=== PATIENT | male | born 1950 | race Caucasian/White ===

== ENCOUNTER 2018-04-15 21:23 | Inpatient (IN) | payer OTHER ==
[~2018-04-15] VITALS: Ht 182.9 cm; Wt 103.9 kg
[2018-04-15 21:23] VITALS: BP 137/53
--- NOTE | 2018-04-15 21:23 | NUR ---
Patient BIBA BLS, transferred to bed 4. RN evaulating patient at bedside.
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
[2018-04-15] MEDS ORDERED: NACL 0.9% 1,000 ML IV SCH ×2 (21:35→23:29)
--- NOTE | 2018-04-15 22:00 | NUR ---
DR. AMARO WANTING TO SPEAK WITH NEXT OF KIN. CONTACTED [facility]. TRANSFERRED TO DR. AMARO.
--- NOTE | 2018-04-15 22:05 | NUR ---
Patient's nephew called and stated he was on his way here to hospital. Nephew lives in [place].
[2018-04-15 22:22] LABS: BASOPHILS % (AUTO) 0.1 % (0.0-2.0); EOSINOPHILS % (AUTO) 0.7 % (0.0-4.0); HEMATOCRIT 27.4 % (36-52); HEMOGLOBIN 8.7 g/dL (12.0-18.0); LYMPHOCYTES # (AUTO) 0.8 K/uL (2.0-11.5); MEAN CORPUSCULAR HEMOGLOBIN 25 pg (27-31); MEAN CORPUSCULAR HGB CONC 32 g/dL (33-37); MONOCYTES # (AUTO) 0.5 K/uL (0.8-1.0); MONOCYTES % (AUTO) 11.5 % (1.7-9.3); NEUTROPHILS # (AUTO) 3.1 K/uL (1.8-7.7); NEUTROPHILS % (AUTO) 68.7 % (42.2-75.2); PLATELET COUNT (AUTO) 109 K/uL (140-450); RED BLOOD CELL COUNT(AUTO) 3.42 MIL/uL (4.20-6.10); RED CELL DISTRIBUTION WIDTH 18.9 % (11.6-13.7); WHITE BLOOD COUNT (AUTO) 4.4 K/uL (4.8-10.8)
--- NOTE | 2018-04-15 22:30 | NUR ---
PT HAS SINGLE LUMEN PICC ON RT ARM. PICC LINE DOES NOT FLUSH OR DRAW. UNABLE TO INFUSE FLUIDS. DR AMARO MADE AWARE
[2018-04-15 22:35] LABS: ALBUMIN 2.4 g/dL (3.4-5.0); ANION GAP 19.7 (8-16); CARBON DIOXIDE 17.9 mmol/L (21-32); TOTAL BILIRUBIN 0.5 mg/dL (0.0-1.0)
[2018-04-15 22:55] LABS: POTASSIUM 6.6 mmol/L (3.5-5.1)
[2018-04-15 22:56] LABS: CREATININE 5.1 mg/dL (0.7-1.3)
[2018-04-15] MEDS ORDERED: NACL 0.9% 1,000 ML IV ONE (23:00)
[2018-04-15] MEDS ORDERED: SODIUM POLYSTYRENE 15 GM/60 ML UDBTL PO ONE (23:00)
[2018-04-15] MEDS ORDERED: ALBUTEROL 0.083% 2.5 MG/3 ML NEBU INH ONE (23:00)
[2018-04-15] MEDS ORDERED: SODIUM POLYSTYRENE 15 GM/60 ML UDBTL PR ONE (23:00)
[2018-04-15] MEDS ORDERED: DEXTROSE 50% 50 ML SYR IVP ONE (23:00)
[2018-04-15] MEDS ORDERED: INSULIN REGULAR, HUMAN 100 UNIT/ML VIAL IVP ONE (23:00)
[2018-04-15] MEDS ORDERED: PIPERACILLIN/TAZOBACTAM 3.375 GM in DEXTROSE 5% 50 ML IV ONE (23:15)
[2018-04-15] MEDS ORDERED: VANCOMYCIN 1,000 MG in DEXTROSE 5% 250 ML IV ONE (23:15)
[2018-04-15] MEDS ORDERED: ONDANSETRON 4 MG/2 ML VIAL IM/IVP PRN (23:30)
[2018-04-15] MEDS ORDERED: DOCUSATE SODIUM 100 MG GELCAP PO PRN (23:30)
[2018-04-15] MEDS ORDERED: VANCOMYCIN 1,000 MG VIAL ONE (23:32)
[2018-04-15] MEDS ORDERED: PIPERACILLIN/TAZOBACTAM 3.375 GM VIAL IV ONE (23:32)
[2018-04-15 23:35] LABS: PROTHROMBIN TIME 13.8 secs (10.8-13.4)
[2018-04-15] MEDS ORDERED: PANT40EC PO (23:37)
[2018-04-15] MEDS ORDERED: CLOP300T1 PO (23:37)
[2018-04-15] MEDS ORDERED: ASPI81CT89 PO (23:37)
[2018-04-15] MEDS ORDERED: ROC2I (23:37)
[2018-04-15] MEDS ORDERED: METH500T14 PO (23:37)
[2018-04-15] MEDS ORDERED: METO50TE2 PO (23:37)
[2018-04-15] MEDS ORDERED: SIMV10TA1 PO (23:37)
[2018-04-15] MEDS ORDERED: TAMS0.4C96 PO (23:37)
[2018-04-15] MEDS ORDERED: AMLO10TA PO (23:37)
[2018-04-16 00:14] LABS: FREE T4 (FREE THYROXINE) 1.14 ng/dL (0.76-1.46); MAGNESIUM 2.4 mg/dL (1.8-2.4); PHOSPHORUS 5.1 mg/dL (2.5-4.9); THYROID STIMULATING HORMONE 3.5 uIU/mL (0.34-3.74)
[2018-04-16 00:30] VITALS: BP 124/59
--- NOTE | 2018-04-16 00:30 | NUR ---
ADMITTED A67M FROM ER. CAME BY JESSICA .PT WITH ALOC. ON TELE MONITOR -SR. BEDREST. NO RESPIRATORY DISTRESS NOR PAIN NOTED. WITH SKIN INTACT. BUT HAS BRUISED ON THE RT ELBOW AND ARM. WITH IVF INFUSING ,BUT IV ACCESS LEAKING. FREQUENT ROUNDS NEEDED. CALL LIGHT PLACED WITHIN EASY REACH. STILL TRYING TO VOID. WILL FOLLOW UP ADMIT ORDERS.
--- NOTE | 2018-04-16 00:34 | NUR ---
Patient will be admitted to care of LYNN. Admited to TELEMETRY]. Will go to room 106A. Belongings list completed. Report to CRAIG PENA.
--- NOTE | 2018-04-16 00:35 | NUR ---
TRANSFFERED PT TO TELEMETRY. GAVE REPORT TO CRAIG PENA. PT VITALS WERE STABLE UPON TRANSFER. WENT TO ROOM 106A
--- NOTE | 2018-04-16 01:00 | NUR ---
PT HAS PICC LINE RT UPPER ARM ONE LUMEN. TRIED TO FLUSH WITH NS 10 ML BUT HAS SOME RESISTANCE.
--- NOTE | 2018-04-16 01:45 | NUR ---
DR. FOSS SAID TO CHECKED BS . RESULT 66. SHE SAID SHE WILL CHANGE THE IVF.
[2018-04-16] MEDS ORDERED: POTASSIUM CHL 20 MEQ/D5-1/2NS 1,000 ML IV SCH (01:50)
[2018-04-16] MEDS ORDERED: DEXTROSE 25% 10 ML SYR IVP ONE (01:50)
--- NOTE | 2018-04-16 01:55 | NUR ---
CONTINUATION OF ABOVE NOTES. DR SHEEHAN ALSO UNABLE TO ADVANCE AND EVEN PULL OUT THE CATHETER . HE SAID MIGHT NEED XRAY.
--- NOTE | 2018-04-16 01:55 | NUR ---
THUY DOSS CHECKED THE STRAIGHT CATH THAT ER STARTED AND STILL WITH PT FOR SHE SAID UNABLE TO ADVANCE IT.
[2018-04-16] MEDS: DEXT 5% / NACL 0.45% 1,000 ML IV SCH ×2 (02:15→15:36)
--- NOTE | 2018-04-16 02:35 | NUR ---
GAVE APPLE JUICE EARLIER THEN RECHECKED BS AFTER RESULT 103. DR FOSS MADE AWARE. SHE SAID SHE WILL DC THE D50 .
--- NOTE | 2018-04-16 03:00 | NUR ---
PT HAD A LARGE LIQUID BROWN STOOL. CLEANED AND KEPT DRY.
[2018-04-16 04:01] VITALS: BP 136/53
[2018-04-16] MEDS ORDERED: INSULIN LISPRO SLIDING SCALE 100 UNITS/ML VIAL SUBQ PRN ×2 (04:25→06:50)
--- NOTE | 2018-04-16 04:47 | NUR ---
PT FOR US ABDOMEN(KUB) FOR THIS AM. FOLLOWED UP WITH RADIOLOGY. TO BE DONE @ 0630 THIS AM. TALKED TO DR. FOSS AND MADE HER AWARE. SHE SAID IT IS OK. JUST LEAVE THE STRAITH CATHETER IN . BLADDER NOT DISTENDED.
[2018-04-16] MEDS: BLOOD GLUCOSE MONITORING 1 DEV DEV FS SCH ×4 (05:31→23:24)
--- NOTE | 2018-04-16 05:31 | NUR ---
BLOOD SUGAR THIS AM 109. PT ON IVF INFUSING.
[2018-04-16] MEDS ORDERED: PIPERACILLIN/TAZOBACTAM 2.25 GM VIAL IV ONE (05:36)
[2018-04-16] MEDS: PIPER/TAZO 2.25GM/D5W PREMIX 50 ML IV SCH ×4 (05:39→23:08)
--- NOTE | 2018-04-16 06:00 | NUR ---
PT NEED SCD MACHINE/ REQUESTED FROM RN GERMAN PROFESSOR.
--- NOTE | 2018-04-16 07:10 | NUR ---
KUB DONE AT BEDSIDE. ENDORSED PT IN STABLE CONDITION TO AM NURSE FOR CONTINUITY OF CARE.
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
[2018-04-16 07:16] LABS: BASOPHILS % (AUTO) 0.1 % (0.0-2.0); EOSINOPHILS % (AUTO) 1.2 % (0.0-4.0); HEMATOCRIT 26.8 % (36-52); HEMOGLOBIN 8.4 g/dL (12.0-18.0); LYMPHOCYTES # (AUTO) 0.9 K/uL (2.0-11.5); LYMPHOCYTES % (AUTO) 22.4 % (20.5-51.1); MEAN CORPUSCULAR HEMOGLOBIN 25 pg (27-31); MEAN CORPUSCULAR HGB CONC 32 g/dL (33-37); MEAN CORPUSCULAR VOLUME 79.8 fL (80-94); MONOCYTES # (AUTO) 0.5 K/uL (0.8-1.0); MONOCYTES % (AUTO) 12.8 % (1.7-9.3); NEUTROPHILS # (AUTO) 2.5 K/uL (1.8-7.7); NEUTROPHILS % (AUTO) 63.5 % (42.2-75.2); PLATELET COUNT (AUTO) 105 K/uL (140-450); RED BLOOD CELL COUNT(AUTO) 3.35 MIL/uL (4.20-6.10); RED CELL DISTRIBUTION WIDTH 18.9 % (11.6-13.7)
[2018-04-16 07:38] LABS: ANION GAP 20.1 (8-16); CARBON DIOXIDE 16.4 mmol/L (21-32); POTASSIUM 5.5 mmol/L (3.5-5.1)
[2018-04-16 07:44] LABS: CHOL/HDL RATIO 1.8 (1-4.5)
[2018-04-16 08:00] VITALS: BP 136/62
--- NOTE | 2018-04-16 08:00 | NUR ---
V/S WITHIN NORMAL LIMITS. NO COMPLAINTS AT THIS TIME. CRITICAL LAB RESULTS: BUN/CREAT 71/5.0 AND K 5.5. NOT NOTIFIED D/T ALL RESULTS DOWNTRENDING. WILL CONTINUE TO MONITOR PT.
--- NOTE | 2018-04-16 08:41 | NUR ---
PATIENT HAS BEEN SCREENED AND CATEGORIZED MODERATE NUTRITION RISK. PATIENT WILL BE SEEN WITHIN 3-5 DAYS OF ADMISSION. 04/18/18 04/20/[address]
[2018-04-16] MEDS: LACTOBACILLUS RHAMNOSUS GG 1 EACH CAP PO SCH (09:09)
[2018-04-16] MEDS: CALCIUM ACETATE 667 MG TAB PO SCH (09:09)
--- NOTE | 2018-04-16 09:15 | NUR ---
ADMINISTERED MORNING MEDS. PT TOLERATED WELL. FAMILY HERE FOR VISIT, AND NEPHEW. DR ENCISO HERE TO ASSESS PT. PER MD, PT'S STRAIGHT CATH FELL OUT. SENT SAMPLE OF URINE TO THE LAB. PT IS SOAKING WET. REQUESTED TO USE A BED DAMON FOR BM. REGIONAL MEDICAL DIRECTOR AND STUDENT THERE FOR BED BATH AND TO CLEAN PT UP. WILL CONTINUE TO MONITOR PT.
[2018-04-16 10:43] LABS: BARBITURATE, URINE NEG. ng/ml (NEG <=200); BENZODIAZEPINE, URINE NEG. ng/mL (NEG <=200); CANNABINOID, URINE NEG. ng/mL (NEG <=50); COCAINE, URINE NEG. ng/mL (NEG <=300); OPIATE, URINE POS. ng/mL (NEG <=2000); PHENCYCLIDINE SCREEN,URINE NEG. ng/mL (NEG <=25)
[2018-04-16 10:57] LABS: APPEARANCE,URINE HAZY (CLEAR); BILIRUBIN,URINE NEGATIVE (NEGATIVE); BLOOD, URINE 1+ (NEGATIVE); COLOR,URINE YELLOW (YELLOW); LEUKOCYTE ESTERASE ,URINE NEGATIVE (NEGATIVE); NITRITE, URINE NEGATIVE (NEGATIVE); PH,URINE 5.5 (5.0-9.0); UGLUCOSE NEGATIVE (NEGATIVE)
[2018-04-16 11:08] LABS: RBC,URINE 0-5 (RARE) /HPF (0-5); WBC,URINE 0-5 (RARE) /HPF (0-5)
[2018-04-16 11:10] LABS: YEAST,URINE Moderate /HPF (None Seen)
--- NOTE | 2018-04-16 11:15 | NUR ---
US TECH IS HERE FOR PROCEDURE. BLADDER SCAN ALSO DONE. 320ML RESIDUAL. WILL NOTIFY MD. WILL CONTINUE TO MONITOR PT.
[2018-04-16 12:00] VITALS: BP 138/62
--- NOTE | 2018-04-16 12:13 | NUR ---
PT SLEEPING SOUNDLY. NO SIGNS OF DISTRESS. WILL CONTINUE TO MONITOR PT.
--- NOTE | 2018-04-16 13:42 | NUR ---
DR ENCISO, UROLOGIST CAME AND SAW. INSERTED CAMERON CATH. ALREADY 700ML OF LIGHT JENIFER URINE IN BAG. WILL NOTIFY HIM OF AMOUNT AFTER 30MIN.
--- NOTE | 2018-04-16 14:27 | NUR ---
CM NOTE PER MANAGER CRITICAL CARE CHRISTEN, SEND REVIEWS TO BOTH [facility] AND [facility] FAX# [phone] ISIAH PH# [phone] TAKER OFF HEMP FIBER RAQUEL PH# [phone] INITIAL REVIEW FAXED TO [facility] [phone] AKILAH PH# [phone] AND TO [facility] FAX# [phone] ISIAH PH# [phone] TAKER OFF HEMP FIBER RAQUEL PH# [phone]
[2018-04-16] MEDS ORDERED: SODIUM POLYSTYRENE 15 GM/60 ML UDBTL PO SCH (15:01)
[2018-04-16 16:00] VITALS: BP 132/66
--- NOTE | 2018-04-16 16:17 | NUR ---
ATTEMPTED TO GIVE KAYEXALATE TO PT. PT NOT AWAKE ENOUGH TO DRINK AND WHEN AWAKE PT REFUSES. SPOKE TO DR. ENCISO RESIDENT. MD CAME AND TRIED TO GIVE TO PT. UNSUCCESSFUL. WILL WAIT UNTIL NEPHEW COMES.
--- NOTE | 2018-04-16 18:37 | NUR ---
NEPHEW AT BEDSIDE. PT HAD MOST OF THE KAYEXALATE. PT IS SOILED. NEED TO BE CHANGED. NOTIFIED REPLENISHMENT SPECIALIST TO ASSIST CHANGING PT. WILL CONTINUE TO MONITOR PT.
--- NOTE | 2018-04-16 19:10 | NUR ---
ENDORSED PT TO THE CREDIT CARD ASSOCIATE NURSE AT BEDSIDE FOR CONTINUITY OF CARE. PT IS IN STABLE CONDITION. NEPHEW AT BEDSIDE.
--- NOTE | 2018-04-16 19:12 | NUR ---
RECEIVED PT ON BED, AAOX2 WITH PERIODS OF CONFUSION, THOMAS TO FOLLOW SIMPLE COMMANDS, VITAL SIGNS STABLE, DENIES ANY PAIN, OCCASIONAL COUGH NOTED, IVF INFUSING WELL, CAMERON CATH IN PLACE WITH CLEAR YELLOW OUTPUT, PLAN OF CARE DISCUSSED WITH PT'S NEPHEW AT BEDSIDE, SAFETY MEASURE IN PLACE, CALL LIGHT WITHIN REACH.
[2018-04-16] MEDS: ALBUTEROL SULFATE/IPRATROPIU 3 ML SOL IH SCH (19:53)
[2018-04-16] MEDS: NACL 0.9% 1,000 ML IV SCH (19:58)
[2018-04-16 20:00] VITALS: BP 138/61
[2018-04-16] MEDS: SIMVASTATIN 10 MG TAB PO SCH (20:38)
[2018-04-16] MEDS: SODIUM BICARBONATE 650 MG TAB PO SCH (20:39)
[2018-04-16] MEDS: TAMSULOSIN 0.4 MG CAP PO SCH (20:39)
--- NOTE | 2018-04-16 21:59 | NUR ---
PER SUPERVISOR FILTRATION PT REFUSING TO LET HER DO THE ARTERIAL AND VENOUS ULTRASOUND OF SHAUNA LOWER EXTREMITIES, EXPLAINED RISK AND BENEFITS TO PT, PT NON-COMPLIANT AT THIS TIME, DR CARMONA MADE AWARE.
--- NOTE | 2018-04-16 22:40 | NUR ---
PT HEARING SOUNDS/NOISE UNDERNEATH HIS BED, NO NOISE HEARD, PT MADE AWARE AND REORIENTED TO PLACE AND TIME, PT HAD SMALL LOOSE BM, PERINEAL CARE DONE, REPOSITIONED TO LEFT SIDE, MONITORED CLOSELY.
[2018-04-17] VITALS: BP 133/52
--- NOTE | 2018-04-17 | NUR ---
PT CALLING, FEELS LIKE HE HAD A BM, SMALL AMOUNT OF LOOSE BM NOTED, PERINEAL CARE DONE, REPOSITIONED FOR COMFORT AND OFFLOAD PRESSURE AREAS, VITAL SIGNS STABLE, DENIES PAIN, IVF INFUSING WELL, CONTINUE TO MONITOR CLOSELY.
[2018-04-17] MEDS: ACETAMINOPHEN 325 MG TAB PO PRN ×2 (00:46→10:00)
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
--- NOTE | 2018-04-17 01:10 | NUR ---
PT HEARD CALLING OUT "HELP", PT WANTS TO BE REPOSITIONED AND FRUSTRATED THAT HE CANNOT REPOSITION BY HIMSELF, REPOSITION TO RIGHT SIDE WITH PAID SEARCH MARKETING STRATEGISTStacy DIETZ, BEFORE LEAVING PT WANTS TO BE REPOSITIONED AGAIN, TOLD PT THAT WE JUST REPOSITIONED HIM AND WE CANNOT BE REPOSITIONING HIM EVERY 5-15 MINUTES, PT COVERED WITH WARM BLANKET, CALL LIGHT WITHIN REACH.
--- NOTE | 2018-04-17 04:08 | NUR ---
PT AWAKE, REQUESTING TO BE CHANGED, BM WITH SMALL LOOSE STOOL, BED BATH DONE, REPOSITIONED AND OFFLOAD PRESSURE AREAS, RT UA PICC LINE SINGLE LUMEN IN PLACE, ATTEMPT TO FLUSH BUT HAS RESISTANCE, IVF INFUSING WELL VIA PERIPHERAL IV LINE TO RT HAND, SITE REWRAPPED WITH KERLIX, VITAL SIGNS STABLE, NO SOB NOTED, DENIES PAIN, MONITORED CLOSELY.
[2018-04-17 04:10] VITALS: BP 115/61
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
--- NOTE | 2018-04-17 05:35 | NUR ---
PT HEARD YELLING AGAIN, PT WANTS TO CALL HIS FAMILY MEMBER, I OFFERED TO CALL HIS NEPHEW [place] AND TRANSFERRED THE CALL TO PT, PT HEARD TALKING TO NEPHEW ON THE PHONE, MONITORED CLOSELY.
[2018-04-17] MEDS: PIPER/TAZO 2.25GM/D5W PREMIX 50 ML IV SCH ×3 (05:42→17:43)
[2018-04-17] MEDS: BLOOD GLUCOSE MONITORING 1 DEV DEV FS SCH ×3 (05:44→17:43)
--- NOTE | 2018-04-17 05:50 | NUR ---
PT ON BED, CALM AT THIS TIME, BLOOD SUGAR CHECKED WITH 95 RESULT, DUE IV ANTIBIOTIC ADMINISTERED, SIDE RAILS UP AND BED ALARM ON, MONITORED CLOSELY.
--- NOTE | 2018-04-17 06:29 | NUR ---
PT OCCASIONALLY YELLS "HELP", ASK WHAT HE NEEDS, STATED "I NEED TO GET OUT OF HERE", NOTICED PT DOING PURSE LIP BREATHING, SAT-95-96%, ASK WHY IS HE DOING PURSE LIP BREATHING, PT STATED "WHAT DO YOU THINK?", PT ENCOURAGE TO WAIT FOR NEPHBHARGAVI AVILA TO COME IN, MONITORED CLOSELY.
--- NOTE | 2018-04-17 07:10 | NUR ---
PT AWAKE, NO SIGNS OF DISTRESS, REPORT GIVEN TO BECKY HOFFMAN FOR CONTINUITY OF CARE.
--- NOTE | 2018-04-17 07:11 | NUR ---
RECEIVED REPORT FROM B2B OUTSIDE SALES REPRESENTATIVE NURSE. PATIENT LYING DOWN IN BED SLEEPING, AROUSABLE BY VOICE. NO DISTRESS NOTED. DENIES ANY PAIN. AAOX2, HAS INTERMITTENT HALLUCINATIONS, COOPERATIVE, SKIN COLOR APPROPRIATE TO ETHNICITY, WARM TO TOUCH. SKIN IS INTACT, BRUISING NOTED ON B/L UE. LUNGS CTA ON ALL LOBES. ABDOMEN SOFT. CAMERON CATHETER IN PLACE DRAINING CLEAR YELLOW URINE, NO HEMATURIA NOTED. IV SITE INTACT, PATENT, AND INFUSING IVF PER MD ORDERS. RIGHT UPPER ARM SINGLE LUMEN PICC LINE NOTED, HARD TO FLUSH, WILL NOTIFY MD. REVIEWED PLAN OF CARE WITH PATIENT. PATIENT VERBALIZED UNDERSTANDING, REINFORCEMENT NEEDED. SAFETY MEASURES IN PLACE, CALL LIGHT WITHIN REACH. WILL CONTINUE TO MONITOR.
[2018-04-17] MEDS: ALBUTEROL SULFATE/IPRATROPIU 3 ML SOL IH SCH ×3 (07:38→19:09)
--- NOTE | 2018-04-17 07:48 | NUR ---
AWAKE AND ALERT RESPONSIVE EDUCATION PROVIDED TO PATIENT WITH ACKNOWLEDGEMENT TOLERATED WELL WITHOUT INCIDENT ENCOURAGED PATIENT TO USE EVERY 1-2 HOURS WHILE AWAKE
[2018-04-17 07:57] LABS: BASOPHILS % (AUTO) 0.2 % (0.0-2.0); EOSINOPHILS # (AUTO) 0.2 K/uL (0-0.4); EOSINOPHILS % (AUTO) 4.3 % (0.0-4.0); HEMATOCRIT 27.6 % (36-52); HEMOGLOBIN 8.7 g/dL (12.0-18.0); LYMPHOCYTES # (AUTO) 0.9 K/uL (2.0-11.5); LYMPHOCYTES % (AUTO) 24.6 % (20.5-51.1); MEAN CORPUSCULAR HEMOGLOBIN 25 pg (27-31); MEAN CORPUSCULAR HGB CONC 32 g/dL (33-37); MEAN CORPUSCULAR VOLUME 79.6 fL (80-94); MONOCYTES # (AUTO) 0.5 K/uL (0.8-1.0); MONOCYTES % (AUTO) 12.1 % (1.7-9.3); NEUTROPHILS # (AUTO) 2.2 K/uL (1.8-7.7); NEUTROPHILS % (AUTO) 58.8 % (42.2-75.2); PLATELET COUNT (AUTO) 111 K/uL (140-450); RED BLOOD CELL COUNT(AUTO) 3.46 MIL/uL (4.20-6.10); RED CELL DISTRIBUTION WIDTH 19.2 % (11.6-13.7); WHITE BLOOD COUNT (AUTO) 3.7 K/uL (4.8-10.8)
[2018-04-17 08:00] VITALS: BP 114/68
[2018-04-17 08:31] LABS: MAGNESIUM 2.1 mg/dL (1.8-2.4); PHOSPHORUS 4.1 mg/dL (2.5-4.9)
[2018-04-17] MEDS: FAMOTIDINE 20 MG TAB PO SCH (08:40)
[2018-04-17] MEDS: LACTOBACILLUS RHAMNOSUS GG 1 EACH CAP PO SCH (08:40)
[2018-04-17] MEDS: CALCIUM ACETATE 667 MG TAB PO SCH (08:40)
[2018-04-17] MEDS: SODIUM BICARBONATE 650 MG TAB PO SCH ×2 (08:40→21:05)
[2018-04-17 08:41] LABS: T4 (THYROXINE) 7.9 ug/dL (4.5-12.0)
[2018-04-17] MEDS: ASPIRIN 81 MG TAB.CHEW PO SCH (08:41)
[2018-04-17] MEDS: METOPROLOL SUCCINATE 50 MG TABER PO SCH (08:50)
--- NOTE | 2018-04-17 08:50 | NUR ---
PATIENT SITTING IN BED, CONTINUES TO HAVE INTERMITTENT HALLUCINATIONS, TALKING TO PEOPLE WHO ARE NOT PRESENT IN THE ROOM. SCHEDULED MEDICATIONS DUE GIVEN. SAFETY MEASURES IN PLACE, CALL LIGHT WITHIN REACH. WILL CONTINUE TO MONITOR.
[2018-04-17] MEDS ORDERED: CLOPIDOGREL 75 MG TAB PO SCH (09:00)
[2018-04-17 09:30] LABS: ANION GAP 17.4 (8-16); CARBON DIOXIDE 18.5 mmol/L (21-32); POTASSIUM 4.9 mmol/L (3.5-5.1)
--- NOTE | 2018-04-17 09:30 | NUR ---
PATIENT SITTING IN BED TALKING WITH FAMILY MEMBERS AT BEDSIDE. NO DISTRESS NOTED. DENIES ANY PAIN. SEBASTIAN CATHETER PLACEMENT CONSENT SIGNED BY PATIENT AFTER EXPLAINING THE PROCEDURE. ANSWERED ALL OF PATIENT'S QUESTIONS REGARDING THE PROCEDURE. WILL CONTINUE TO MONITOR.
[2018-04-17 09:34] LABS: CREATININE 4.6 mg/dL (0.7-1.3)
--- NOTE | 2018-04-17 10:55 | NUR ---
LAB CALLED REGARDING 1 UNIT OF PLATELET ON HOLD ORDERED BY DR. BERMEO. LAB WANTS TO MAKE SURE IF THE PLATELET WILL BE NEEDED TODAY SINCE CANNOT BE RETURNED ONCE ORDERED. PAGED DR. BERMEO TO ASK IF HE WILL BE PERFORMING THE SEBASTIAN CATH SURGERY TODAY OR TOMORROW. AWAITING FOR DR. BERMEO CALLBACK.
[2018-04-17 12:00] VITALS: BP 117/69
[2018-04-17] MEDS: NACL 0.9% 1,000 ML IV SCH (12:32)
--- NOTE | 2018-04-17 12:36 | NUR ---
PATIENT LYING DOWN IN BED SLEEPING, AROUSABLE BY VOICE. CONTINUES TO HAVE INTERMITTENT CONFUSION AND HALLUCINATION EPISODES. DR. BERMEO REVIEWED PLAN OF CARE WITH PATIENT. DR. BERMEO TO HOLD OFF ON SEBASTIAN CATHETER PLACEMENT TODAY DUE TO PATIENT RECEIVING PLAVIX 2 DAYS AGO. SCHEDULED MEDICATIONS DUE GIVEN. SAFETY MEASURES IN PLACE, CALL LIGHT WITHIN REACH. WILL CONTINUE TO MONITOR.
[2018-04-17 16:00] VITALS: BP 141/69
--- NOTE | 2018-04-17 17:20 | NUR ---
DR. YU (CHIEF NUCLEAR MEDICINE TECHNOLOGIST) AT BEDSIDE REVIEWING PLAN OF CARE WITH PATIENT. WILL CONTINUE TO MONITOR.
--- NOTE | 2018-04-17 17:34 | NUR ---
ASSISTED YARD JACKER IN CLEANING AND REPOSITIONING PATIENT. CONDITION UNCHANGED. WILL CONTINUE TO MONITOR.
[2018-04-17] MEDS: FLUCONAZOLE 100 MG TAB PO SCH (18:10)
--- NOTE | 2018-04-17 18:16 | NUR ---
PATIENT SITTING IN BED WITH DINNER TRAY IN FRONT. NO DISTRESS NOTED. DENIES ANY PAIN. SCHEDULED ANTIBIOTIC MEDICATION GIVEN. SAFETY MEASURES IN PLACE, CALL LIGHT WITHIN REACH. WILL CONTINUE TO MONITOR.
--- NOTE | 2018-04-17 18:30 | NUR ---
DR. JIMENES AT BEDSIDE EVALUATING PATIENT. WILL CONTINUE TO MONITOR.
--- NOTE | 2018-04-17 19:25 | NUR ---
GAVE REPORT TO DEPLOYMENT ENGINEER NURSE FOR CONTINUITY OF CARE. PATIENT IN STABLE CONDITION.
--- NOTE | 2018-04-17 19:25 | NUR ---
RECEIVED REPORT FROM DAYSHIFT NURSE AT BEDSIDE FOR CONTINUITY OF CARE. OT IN STABLE CONDITION AO X 3. PT IN LOW BED WITH SIDE RAILS UP X 2 . IV SITE 20G ON R HAND RUNNING NS AT 60MLS/HR. PT HAS F/C 16F DRAINING YELLOW URINE. PT BEING TURNED AND CHANGED AT THIS TIME, NO C/O VOICED. BED RETURNED TO LOW POSITION AND LG BUSCH IN REACH.
[2018-04-17 20:00] VITALS: BP 131/64
--- NOTE | 2018-04-17 21:00 | NUR ---
X-RAY AT BEDSIDE , HOWEVER, PT REFUSING TO BE X-RAYED UNTIL HE IS CLEANED AND CHANGED. REPAIRER KILN CAR TURNED AND CHANGED RESIDENT AND MADE HIM COMFORTABLE. RESPIRATORY AT BEDSIDE CHECKING PT HR AND 02. PT 02 IS 93 WITH PULSE RATE OF 96.
[2018-04-17] MEDS: TAMSULOSIN 0.4 MG CAP PO SCH (21:05)
[2018-04-17] MEDS: SIMVASTATIN 10 MG TAB PO SCH (21:05)
[2018-04-18] VITALS: BP 142/71
[2018-04-18] MEDS: PIPER/TAZO 2.25GM/D5W PREMIX 50 ML IV SCH ×4 (00:14→19:42)
[2018-04-18] MEDS: BLOOD GLUCOSE MONITORING 1 DEV DEV FS SCH ×4 (00:14→18:00)
--- NOTE | 2018-04-18 00:30 | NUR ---
PT ASSISTED WITH TURNING IN BED AND MADE COMFORTABLE. IV CONTINUES TO RUN ORDERED,PT HAD NO C/O VOICED 12 MIDNIGHT MEDS GIVEN ORDERED V/S FOLLOWS T 98.8 P 84 R 20 B/P 142/71 02 91 WITH R/A. BED IN LOW POSITION AND CALL BUSCH IN REACH.
[2018-04-18] MEDS: ALBUTEROL SULFATE/IPRATROPIU 3 ML SOL IH PRN ×2 (01:54→17:21)
[2018-04-18] MEDS: NACL 0.9% 1,000 ML IV SCH ×2 (04:00→20:41)
[2018-04-18 06:00] VITALS: BP 149/82
[2018-04-18 06:39] LABS: BASOPHILS % (AUTO) 0.2 % (0.0-2.0); EOSINOPHILS # (AUTO) 0.2 K/uL (0-0.4); EOSINOPHILS % (AUTO) 4.7 % (0.0-4.0); HEMATOCRIT 26.4 % (36-52); HEMOGLOBIN 8.5 g/dL (12.0-18.0); LYMPHOCYTES # (AUTO) 0.9 K/uL (2.0-11.5); LYMPHOCYTES % (AUTO) 22.3 % (20.5-51.1); MEAN CORPUSCULAR HEMOGLOBIN 25 pg (27-31); MEAN CORPUSCULAR HGB CONC 32 g/dL (33-37); MEAN CORPUSCULAR VOLUME 78.9 fL (80-94); MONOCYTES # (AUTO) 0.4 K/uL (0.8-1.0); MONOCYTES % (AUTO) 11.2 % (1.7-9.3); NEUTROPHILS # (AUTO) 2.4 K/uL (1.8-7.7); NEUTROPHILS % (AUTO) 61.6 % (42.2-75.2); PLATELET COUNT (AUTO) 102 K/uL (140-450); RED BLOOD CELL COUNT(AUTO) 3.34 MIL/uL (4.20-6.10); RED CELL DISTRIBUTION WIDTH 19.2 % (11.6-13.7); WHITE BLOOD COUNT (AUTO) 3.9 K/uL (4.8-10.8)
[2018-04-18 06:59] LABS: CARBON DIOXIDE 17.8 mmol/L (21-32); CREATININE 3.8 mg/dL (0.7-1.3); POTASSIUM 4.8 mmol/L (3.5-5.1)
[2018-04-18 07:07] LABS: PHOSPHORUS 3.8 mg/dL (2.5-4.9)
--- NOTE | 2018-04-18 07:15 | NUR ---
RECEIVED REPORT FROM NIGHTSHIFT NURSE AT BEDSIDE. PATIENT IS AWAKE AT THIS TIME IN HIGH FOWLERS POSITION. PATIENT HAS IV ACCESS ON HIS RIGHT HAND HAND 20 G RUNNING NORMAL SALINE AT 60 ML/HR. PATIENT IS ALERT AND ORIENTED X3 AT THIS TIME. NO DISTRESS NOTED. NO PAIN NOTED. CAMERON CATHETER IN PLACE DRAINING WELL. PATIENT HAS A RIGHT UPPER ARM PICC LINE SL. PATIENT PRESENTS WITH BILATERAL BRUISING AND TATTOOS ON ARMS. NO HALLUCINATIONS NOTED AT THIS TIME. BED LOWERED TO LOWEST SETTING. PATIENT HAS CALL LIGHT WITHIN REACH OF PATIENT. UPDATED BOARD IN PATIENT'S ROOM. WILL CONTINUE TO MONITOR PATIENT.
[2018-04-18] MEDS: ALBUTEROL SULFATE/IPRATROPIU 3 ML SOL IH SCH ×3 (07:35→19:21)
[2018-04-18] MEDS: SODIUM BICARBONATE 650 MG TAB PO SCH ×2 (08:25→20:43)
[2018-04-18] MEDS: METOPROLOL SUCCINATE 50 MG TABER PO SCH (08:25)
[2018-04-18] MEDS: FAMOTIDINE 20 MG TAB PO SCH (08:25)
--- NOTE | 2018-04-18 08:28 | NUR ---
PATIENT TOOK HALF OF AM MEDICATIONS. PATIENT WANTS TO TAKE OTHER HALF LATER. WILL OFFER AGAIN LATER. PATIENT TOLERATED WELL.
[2018-04-18] MEDS: LACTOBACILLUS RHAMNOSUS GG 1 EACH CAP PO SCH (09:00)
[2018-04-18] MEDS: ASPIRIN 81 MG TAB.CHEW PO SCH (09:00)
--- NOTE | 2018-04-18 09:13 | NUR ---
Retail Center Receptionist Note: Per Starr from [facility] , patient is on a 7 day bed hold.
--- NOTE | 2018-04-18 09:19 | NUR ---
OFFERED MEDICATIONS TO PATIENT AGAIN. PATIENT REFUSED THE MEDICATIONS. BENEFITS OF MEDICATION WERE EXPLAINED TO PATIENT BUT PATIENT STILL REFUSED. WILL CONTINUE TO MONITOR PATIENT.
[2018-04-18 12:00] VITALS: BP 147/83
--- NOTE | 2018-04-18 12:36 | NUR ---
PATIENT RESTING AT THIS TIME. NO DISTRESS NOTED. WILL CONTINUE TO MONITOR PATIENT.
--- NOTE | 2018-04-18 13:26 | NUR ---
IF PATIENT GOES TO SNF OVER THE WEEKEND, AUTH FROM [facility] FOR TRANSPORT IS [id number]. CASSANDRA PENAGRINDER OPERATOR NURSE AWARE.
[2018-04-18] MEDS ORDERED: HYDROcodone/APAP 5/325 MG 1 TAB TAB PO PRN (13:50)
--- NOTE | 2018-04-18 13:58 | NUR ---
FAXED CONCURRENT REVIEW TO [facility] [phone] PHONE [place] [phone] FAXED CONCURRENT REVIEW TO [facility] [phone] PHONE [phone]
--- NOTE | 2018-04-18 15:02 | NUR ---
Electronics Assembler And Tester Note: Per Efraín from [facility] / , patient may go to room 112A at their facility if discharge over weekend. Efraín stated patient is one of their short term placement patients, however, he might transition to being detention patients.
--- NOTE | 2018-04-18 15:57 | NUR ---
PATIENT SHOWS NO SIGNS OF DISTRESS. WILL CONTINUE TO MONITOR PATIENT.
[2018-04-18 16:43] VITALS: BP 139/69
[2018-04-18] MEDS ORDERED: ACETAMINOPHEN 325 MG TAB PO PRN (17:25)
--- NOTE | 2018-04-18 19:20 | NUR ---
RECEIVED REPORT FROM AYLA PENA DAYSHIFT NURSE AT BEDSIDE PT IN STABLE CONDITION WITH ALL FALLS PRECAUTIONS IN PLACE. PT HOB UP 45% HE HAS F/C INTACT AT THIS TIME THAT HAS DRAINED 200MLS OF JENIFER YELLOW URINE. PT HAS LEFT HAND 20 G IV RUNNING N/S AT 60MLS HR. HOLISTIC HEALTH PRACTITIONER AT BEDSIDE CHANGING AND ASSISTING WITH REPOSITIONING OF PT AT THIS TIME. V/S FOLLOWS T 97.5 P 68 R 20 B/P 144/76 O2 96% WITH 2 LITERS VIA N/C.
--- NOTE | 2018-04-18 19:20 | NUR ---
GAVE REPORT TO NIGHTSHIFT NURSE AT BEDSIDE. PATIENT IN STABLE CONDITION.
[2018-04-18] MEDS: FLUCONAZOLE 100 MG TAB PO SCH (19:42)
[2018-04-18 20:00] VITALS: BP 144/76
--- NOTE | 2018-04-18 20:27 | NUR ---
SPOKE WITH DR. FOSS REGARDING PT REFUSING HEPARIN SHOT. SPOKE WITH PT AND HE WILL FOLLOW THE DOCTOR'S ORDERS AND RECEIVE HEPARIN SHOT.
[2018-04-18] MEDS: TAMSULOSIN 0.4 MG CAP PO SCH (20:42)
[2018-04-18] MEDS: SIMVASTATIN 10 MG TAB PO SCH (20:43)
--- NOTE | 2018-04-18 23:00 | NUR ---
PT CAMERON CATHETER D/CD, OUTPUT WAS 700 YELLOW JENIFER URINE, CAMERON OUT WITH BALLOON INTACT. PT CHANGED AND REPOSITIONED.
[2018-04-19] VITALS: BP 142/70
[2018-04-19] MEDS: PIPER/TAZO 2.25GM/D5W PREMIX 50 ML IV SCH ×3 (00:55→19:23)
[2018-04-19] MEDS: ACETAMINOPHEN 325 MG TAB PO PRN ×2 (01:18→20:37)
--- NOTE | 2018-04-19 01:18 | NUR ---
PT C/O PAIN IN LEGS AND LOWER BACK, PT GIVEN TYLENOL 650 PRN. PT COMPLAINING THAT HE OFTEN GETS NERVE PAIN DOWN HIS BACK AND IN HIS FEET, PT ASKING IF HE CAN HAVE MEDICATION FOR NERVE PAIN AND SAID THAT HE WAS TAKING GABAPENTIN BACK IN [facility]. SPOKE WITH RESIDENT DOCTORS ABOUT ORDERING GABAPENTIN FOR PT LOWER EXTREMITY PAIN.
[2018-04-19] MEDS: ALBUTEROL SULFATE/IPRATROPIU 3 ML SOL IH PRN (01:53)
[2018-04-19] MEDS ORDERED: GABAPENTIN 300 MG CAP PO ONE (01:55)
[2018-04-19 04:00] VITALS: BP 147/85
[2018-04-19] MEDS: BLOOD GLUCOSE MONITORING 1 DEV DEV FS SCH ×5 (06:04→23:58)
--- NOTE | 2018-04-19 07:15 | NUR ---
PT HAD NOT VOIDED SINCE F/C HAD BEEN TAKEN OUT, RESIDENT DR FERRARA MADE AWARE AWAITING ANY NEW ORDERS. GAVE REPORT TO ADAL PENA AT BEDSIDE FOR TRANSFER OF CARE, PT IN STABLE CONDITION.
--- NOTE | 2018-04-19 07:20 | NUR ---
RECEIVED PT FROM LONG LINE TEAMSTER NURSE, PT IS AWAKE AND LYING ON THE BED WITH BED IN LOW POSITION AND SIDE RAILS ARE UP. FALL PRECAUTION ENFORCED AND BED ALARM IN PLACE. PT HAS AN IV LINE ON THE RT FA G. 20, NS AT 60ML/HR, INTACT. PT HAS NOT VOIDED YET SINCE THE CAMERON CATHETER WAS REMOVED LAST NIGHT AT 2300 PER [facility] SHIFT NURSE ENDORSEMENT. NO SIGN OF DISTRESS NOTED AND VERBALIZED NO PAIN. WILL CONTINUE TO MONITOR.
[2018-04-19 07:40] LABS: EOSINOPHILS # (AUTO) 0.3 K/uL (0-0.4); LYMPHOCYTES # (AUTO) 0.8 K/uL (2.0-11.5); WHITE BLOOD COUNT (AUTO) 4.5 K/uL (4.8-10.8)
[2018-04-19 07:56] LABS: BASOPHILS % (AUTO) 0.3 % (0.0-2.0); EOSINOPHILS % (AUTO) 6.3 % (0.0-4.0); HEMATOCRIT 28.9 % (36-52); HEMOGLOBIN 9.1 g/dL (12.0-18.0); LYMPHOCYTES % (AUTO) 18.7 % (20.5-51.1); MEAN CORPUSCULAR HEMOGLOBIN 25 pg (27-31); MEAN CORPUSCULAR HGB CONC 32 g/dL (33-37); MEAN CORPUSCULAR VOLUME 79.7 fL (80-94); MONOCYTES # (AUTO) 0.6 K/uL (0.8-1.0); MONOCYTES % (AUTO) 12.9 % (1.7-9.3); NEUTROPHILS # (AUTO) 2.8 K/uL (1.8-7.7); NEUTROPHILS % (AUTO) 61.8 % (42.2-75.2); PLATELET COUNT (AUTO) 116 K/uL (140-450); RED BLOOD CELL COUNT(AUTO) 3.62 MIL/uL (4.20-6.10)
[2018-04-19 07:57] LABS: ANION GAP 13.5 (8-16); CARBON DIOXIDE 18.6 mmol/L (21-32); CREATININE 3.1 mg/dL (0.7-1.3); POTASSIUM 5.1 mmol/L (3.5-5.1)
[2018-04-19 08:00] VITALS: BP 144/75
--- NOTE | 2018-04-19 08:00 | NUR ---
RT IS GIVING BREATHING TREATMENT TO THE PT.
[2018-04-19] MEDS: ALBUTEROL SULFATE/IPRATROPIU 3 ML SOL IH SCH ×3 (08:04→19:14)
--- NOTE | 2018-04-19 08:04 | NUR ---
AWAKE AND ALERT RESPONSIVE TO COMMISSION ASSOCIATE PATIENT PRESENTING WITH INCREASED SOB DUE TO PHYSICAL REPOSITIONING FROM ADAL/BECKY AND [facility] STRUCTURAL MANAGER Addendum: 04/19/18 at 0854 by Aden Gonzalez RT PHARMACIST TO RETURN ONE DUONEB UD (MST NO STK DRAWER CLOSED PRIOR TO MED CANCEL; PULLED UD FROM ER)
[2018-04-19 08:14] LABS: MAGNESIUM 2.1 mg/dL (1.8-2.4)
[2018-04-19] MEDS ORDERED: CLOPIDOGREL 75 MG TAB PO SCH (09:00)
--- NOTE | 2018-04-19 09:00 | NUR ---
ASSISTED THE PT TO USE THE URINAL AND WAS ABLE TO VOID 300ML.
[2018-04-19] MEDS: FAMOTIDINE 20 MG TAB PO SCH (09:32)
[2018-04-19] MEDS: LACTOBACILLUS RHAMNOSUS GG 1 EACH CAP PO SCH (09:33)
[2018-04-19] MEDS: SODIUM BICARBONATE 650 MG TAB PO SCH ×2 (09:33→20:33)
[2018-04-19] MEDS: ASPIRIN 81 MG TAB.CHEW PO SCH (09:34)
[2018-04-19] MEDS: METOPROLOL SUCCINATE 50 MG TABER PO SCH (09:34)
--- NOTE | 2018-04-19 10:39 | NUR ---
04/19/18 RD INITIAL ASSESSMENT COMPLETED PLEASE REFER TO NUTRITION ASSESSMENT UNDER CARE ACTIVITY FOR ESTIMATED NUTRITIONAL NEEDS. RD RECOMMENDATIONS: 1. CONTINUE ON CCHO 60 GM DIET TOLERATED. 2. CONSULT RDN PRN. 3. RD WILL F/U 3-5 DAYS; MODERATE RISK. ARON CURIEL MS, RDN
--- NOTE | 2018-04-19 11:47 | NUR ---
CALLED DR MADDISON PLATT [id number] REVIEWED ABG SAMPLE REPORT NO NEW ORDERS
[2018-04-19 12:00] VITALS: BP 140/86
--- NOTE | 2018-04-19 12:00 | NUR ---
DR. PLATT CAME TO THE PT'S ROOM AND SPOKE TOT HE PT REGARDING THE PLAN OF CARE. PT VERBALIZED UNDERSTANDING AND RESPONDING APPROPRIATELY.
--- NOTE | 2018-04-19 12:46 | NUR ---
PT IS OUT OF THE ROOM FOR THE CT OF THE HEAD WITHOUT CONTRAST. PT IS STABLE AT THIS TIME.
--- NOTE | 2018-04-19 13:05 | NUR ---
PT IS BACK TO THE ROOM FROMTHE CT OF THE HEAD. NO SIGN OF DISTRESS NOTED. WILL MONITOR.
--- NOTE | 2018-04-19 13:05 | NUR ---
GALLO OF RADIOLOGY CALLED AND SAID THAT THE PULMONARY VQ SCAN WILL BE DONE AT 1700 BY LOLA. ACKNOWLEDGED.
[2018-04-19] MEDS: NACL 0.9% 1,000 ML IV SCH (13:20)
[2018-04-19] MEDS ORDERED: PIPER/TAZO 2.25GM/D5W PREMIX 50 ML IV SCH (13:29)
[2018-04-19] MEDS ORDERED: HEPARIN PER PHARMACY MC PRN (13:40)
[2018-04-19] MEDS: hePARIN / DEXT 5% PREMIX 250 ML IV SCH (15:55)
--- NOTE | 2018-04-19 15:55 | NUR ---
HEPARIN DRIP STARTED PER PHARMACY PROTOCOL. WILL CONTINUE TO MONITOR.
[2018-04-19 16:00] VITALS: BP 141/69
--- NOTE | 2018-04-19 17:05 | NUR ---
PT IS OUT OF THE ROOM FOR THE PULMONARY VQ SCAN. NO SIGN OF DISTRESS NOTED ON THE PT.
--- NOTE | 2018-04-19 18:30 | NUR ---
PT IS BACK FROM THE PULMONARY VQ SCAN. VITAL SIGNS TAKEN AND IS STABLE. NO SIGN OF DISTRESS NOTED.
[2018-04-19] MEDS: FLUCONAZOLE 100 MG TAB PO SCH (19:24)
--- NOTE | 2018-04-19 19:25 | NUR ---
ENDORSED PT TO ULTRASOUND TECHNOLOGIST SONOGRAPHER NURSE, EMILY FOR CONTINUITY OF CARE. PT IS STABLE AT THIS TIME.
--- NOTE | 2018-04-19 19:30 | NUR ---
RECEIVED PT IN STABLE CONDITION FROM AM NURSE. AWAKE,ALERT AND ORIENTED X4. ON TELE MONITOR. BEDREST. HAS FAMILY MEMBER AT BEDSIDE. WITH NO C/O ANY DISCOMFORT NOR PAIN NOTED. O2 2L/NC , NO SOB NOTED HAS HEPARIN DRIP INFUSING ON THE RT FA320. CLEAR AND PATENT. JUST STARTED A NEW IV ACCESS ON LT HAND #22. CLEAR AND PATENT FOR ANTIBIOTICS AND IVF. PICC LINE RT UPPER ARM , BUT NOT WORKING. PLAN OF CARE DISCUSSED AND VERBALIZED UNDERSTANDING. BED ON LOW POSITION. FREQUENT ROUNDS NEEDED. CALL LIGHT PLACED WITHIN EASY REACH. WILL CONITNUE TO MONITOR.
[2018-04-19 20:00] VITALS: BP 141/76
[2018-04-19] MEDS: TAMSULOSIN 0.4 MG CAP PO SCH (20:33)
[2018-04-19] MEDS: SIMVASTATIN 10 MG TAB PO SCH (20:34)
--- NOTE | 2018-04-19 22:10 | NUR ---
BLOOD WAS DRAWN FRO PTT . WILL FOLLOW UP RESULT.
--- NOTE | 2018-04-19 23:40 | NUR ---
LAB CALLED 04003 FOR PTT RESULT GREATER 150. FOLLOWED HEPARIN PROTOCOL .HOLD HEPARIN FOR 1 HOUR, THEN WILL DECREASE HEPARIN DRIP TO 25O UNITS/HR . MADE AWARE.
[2018-04-20 00:26] VITALS: BP 132/72
--- NOTE | 2018-04-20 00:40 | NUR ---
RESTARTED HEPARIN DRIP PER PROTOCOL. NEXT PTT 0640.
[2018-04-20] MEDS: NACL 0.9% 1,000 ML IV SCH ×3 (00:41→22:40)
[2018-04-20] MEDS: PIPER/TAZO 2.25GM/D5W PREMIX 50 ML IV SCH ×4 (00:41→17:25)
[2018-04-20] MEDS: hePARIN / DEXT 5% PREMIX 250 ML IV SCH ×2 (00:51→09:31)
[2018-04-20] MEDS: ALBUTEROL SULFATE/IPRATROPIU 3 ML SOL IH PRN ×2 (02:49→23:12)
[2018-04-20] MEDS: ACETAMINOPHEN 325 MG TAB PO PRN (02:54)
--- NOTE | 2018-04-20 02:55 | NUR ---
JUST HAD A BREATHING TREATMENT. NO SOB NOTED.
[2018-04-20 04:00] VITALS: BP 135/75
[2018-04-20] MEDS: BLOOD GLUCOSE MONITORING 1 DEV DEV FS SCH ×4 (05:20→21:08)
--- NOTE | 2018-04-20 05:58 | NUR ---
NO URINE OUTPUT DURING THE SHIFT. BLADDER NOT DISTENDED . DR. FOSS MADE AWARE. SHE SAID TO CONTINUE TO MONITOR.
[2018-04-20] MEDS: ALBUTEROL SULFATE/IPRATROPIU 3 ML SOL IH SCH ×3 (06:50→19:21)
--- NOTE | 2018-04-20 06:50 | NUR ---
AWAKE AND ALERT RESPONSIVE OFF SUPPLEMENTAL OXYGEN C/O NASAL DRYNESS POST HHN THERAPY PLACED BACK ON HUMIDIFIED OXYGEN AT 2 LPM VIA NC
--- NOTE | 2018-04-20 07:15 | NUR ---
ENDORSED PT IN STABLE CONDITION TO AM NURSE.
--- NOTE | 2018-04-20 07:20 | NUR ---
RECEIVED PT FROM PHARMACIST CRITICAL CARE NURSEEMILY, PT IS AWAKE AND LYING ON THE BED WITH TWO IV LINES IN PLACE AND AN O2 AT NC AT 2L. RT ON THE BEDSIDE AND GIVING BREATHING TREATMENT TO THE PT AND PT ID TOLERATING IT. PT HAS AN IV LINE ON THE RT FA G. 20 WITH HEPARIN INFUSING AT 1150 UNITS/HR, INTACT AND PATENT AND AN IV LINE ON THE LEFT FA G. 22 WITH NS AT 60 ML/HR INFUSING WELL. SIDE RAILS ARE UP AND BED IN LOW POSITION. SAFETY PRECAUTION ENFORCED AND BED ALARM ACTIVATED. NO SIGN OF DISTRESS NOTED ON THE PT AND WILL CONTINUE TO MONITOR.
[2018-04-20 07:24] LABS: ANION GAP 12.4 (8-16); CARBON DIOXIDE 19.8 mmol/L (21-32); CREATININE 2.9 mg/dL (0.7-1.3)
[2018-04-20 07:29] LABS: MAGNESIUM 2.2 mg/dL (1.8-2.4); PHOSPHORUS 4.2 mg/dL (2.5-4.9)
[2018-04-20 07:30] LABS: POTASSIUM 5.2 mmol/L (3.5-5.1)
--- NOTE | 2018-04-20 07:30 | NUR ---
PT IS AWAKE AND LYING ON THE BED, VITAL SIGNS TAKEN AND IS STABLE, NO SIGN OF DISTRESS NOTED AND WILL CONTINUE TO MONITOR.
--- NOTE | 2018-04-20 07:47 | NUR ---
ABDULLAHI FROM LAB CALLED AND REPORTED A CRITICAL LAB VALUE OF THE PT'S PTT WHICH IS GREATER THAN 150, ACKNOWLEDGED AND WILL NOTIFY THE MD.
--- NOTE | 2018-04-20 07:50 | NUR ---
REPORTED TO DR. BURTON REGARDING THE PTT VALUE OF THE PT WHICH IS GREATER THAN 150. ACKNOWLEDGED.
[2018-04-20 08:00] VITALS: BP 142/72
--- NOTE | 2018-04-20 08:00 | NUR ---
HOLD HEPARIN DRIP NOW BECAUSE PTT IS GREATER THAN 150 AND FOLLOWED PHARMACY PROTOCOL ON HEPARIN.
[2018-04-20 08:15] LABS: HEMOGLOBIN 8.8 g/dL (12.0-18.0); MEAN CORPUSCULAR HEMOGLOBIN 25 pg (27-31); MEAN CORPUSCULAR HGB CONC 31 g/dL (33-37); RED CELL DISTRIBUTION WIDTH 18.9 % (11.6-13.7)
[2018-04-20 08:16] LABS: MEAN CORPUSCULAR VOLUME 80.5 fL (80-94); PLATELET COUNT (AUTO) 122 K/uL (140-450); RED BLOOD CELL COUNT(AUTO) 3.49 MIL/uL (4.20-6.10); WHITE BLOOD COUNT (AUTO) 3.8 K/uL (4.8-10.8)
[2018-04-20 08:17] LABS: BASOPHILS % (MANUAL) 0 % (0-2); EOSINOPHILS % (MANUAL) 4 % (0-4); LYMPHOCYTES % (MANUAL) 27 % (20-46); MONOCYTES % (MANUAL) 11 % (5-12)
[2018-04-20] MEDS ORDERED: SODIUM POLYSTYRENE 15 GM/60 ML UDBTL PO SCH (08:30)
[2018-04-20] MEDS: LACTOBACILLUS RHAMNOSUS GG 1 EACH CAP PO SCH (09:19)
[2018-04-20] MEDS: METOPROLOL SUCCINATE 50 MG TABER PO SCH (09:19)
[2018-04-20] MEDS: FAMOTIDINE 20 MG TAB PO SCH (09:19)
[2018-04-20] MEDS: SODIUM BICARBONATE 650 MG TAB PO SCH ×2 (09:20→20:19)
[2018-04-20] MEDS: ASPIRIN 81 MG TAB.CHEW PO SCH (09:20)
--- NOTE | 2018-04-20 09:31 | NUR ---
HEPARIN DRIP OF 1150 UNITS/HR WAS REDUCED BY 250 UNITS/HR AND WAS STARTED AT 900 UNITS/HR PER PHARMACY PROTOCOL.
--- NOTE | 2018-04-20 09:31 | NUR ---
HEPARIN DRIP WAS STARTED AND RATE WAS DECREASED TO 250 UNITS/HR HEPARIN DRIP PROTOCOL. HEPARIN DRIP IS RUNNING AT 900 UNITS/HR NOW.
--- NOTE | 2018-04-20 10:30 | NUR ---
DR. MONSALVE CAME TO THE PT'S ROOM AND SPOKE AND CHECKED THE PT. MD SAID THAT HE WILL PUT AN ORDER.
--- NOTE | 2018-04-20 11:03 | NUR ---
HEPARIN DRIP WAS STOPPED PER ACKNOWLEDGMENT OF CANCELLATION ORDER FROM DR. WILKINSON.
--- NOTE | 2018-04-20 11:05 | NUR ---
SPOKE TO DR. MONSALVE AND SAID THAT HE IS DISCONTINUING THE HEPARIN DRIP OF THE PT AND WILL JUST START ON A HEPARIN SUBQ. DR. MONSALVE SAW THE PULMONARY VQ SCAN DONE ON THE PT AND DR. MONSALVE SAID THAT THE PT DOES NOT HAVE PULMONARY EMBOLISM. ACKNOWLEDGED AND WILL FOLLOW THROUGH WITH THE ORDER.
--- NOTE | 2018-04-20 11:30 | NUR ---
PT IS AWAKE AND LYING ON THE BED AND BLOOD GLUCOSE CHECK DONE AND RESULT IS 127 AND NO INSULIN COVERAGE NEEDED. ZOSYN GIVEN VIA IV PB AND PT TOLERATED IT AND NO SIGN OF REACTION. WILL MONITOR.
--- NOTE | 2018-04-20 11:30 | NUR ---
DR. BURTON IS IN THE PT'S ROOM AND ASSESSING THE PT'S STATUS. PT IS VERBALIZING UNDERSTANDING WITH WHAT THE MD IS TELLING HIM AND RESPONDING APPROPRIATELY.
[2018-04-20 12:00] VITALS: BP 128/78
[2018-04-20 16:00] VITALS: BP 128/69
[2018-04-20] MEDS: FLUCONAZOLE 100 MG TAB PO SCH (17:25)
--- NOTE | 2018-04-20 17:29 | NUR ---
PT IS AWAKE AND WATCHING TV, MEDICATIONS GIVEN VIA IV AND ORAL AND PT TOLERATED IT. NO SIGN OF DISTRESS NOTED ON THE PT. WILL CONTINUE TO MONITOR.
--- NOTE | 2018-04-20 18:35 | NUR ---
HANG A NEW BAG OF NS NOW, RUNNING AT A RATE OF 60ML/HR. INFUSING WELL.
--- NOTE | 2018-04-20 19:00 | NUR ---
ENDORSED PT TO LANDMAN NURSE, EMILY FOR CONTINUITY OF CARE. PT IS STABLE AT THIS TIME.
--- NOTE | 2018-04-20 19:05 | NUR ---
RECEIVED PT IN STABLE CONDITION FROM AM NURSE. AWAKE,ALERT AND ORIENTED X3. WITH FAMILY MEMBER AT BEDSIDE. ON TELE MONITOR - SR. NO SOB NOTED. HAS O22L/NC. BEDREST. GENERALIZED WEAKNESS. WITH IVF INFUSING WELL ON THE LT HAND#22. CLEAR AND PATENT. STILL WITH OLD PICC LINE ON THE RT UPPER ARM. BOTH ARMS WITH EDEMA. OCCASIONAL NON PRODUCTIVE COUGH. GETTING BREATHING TREATMENTS. BED ON LOW POSITION. FREQUENT ROUNDS NEEDED. CALL LIGHT PLACED WITHIN EASY REACH. INSTRUCTED TO CALL IF NEED ASSISTANCE. WILL CONTINUE TO MONITOR.
[2018-04-20 19:45] VITALS: BP 129/70
--- NOTE | 2018-04-20 20:18 | NUR ---
BLOOD SUGAR WAS CHECKED RESULT 143. NO INSULIN NEEDED. PT HAD SOME JUICE. WILL CONTINUE TO MONITOR.
[2018-04-20] MEDS: SIMVASTATIN 10 MG TAB PO SCH (20:19)
[2018-04-20] MEDS: TAMSULOSIN 0.4 MG CAP PO SCH (20:19)
[2018-04-20] MEDS: GABAPENTIN 300 MG CAP PO SCH (20:19)
--- NOTE | 2018-04-20 21:30 | NUR ---
PT HAD A LARGE WATERY BM . CLEANED AND KEPT DRY THEN REPOSITIONED FOR COMFORT.
[2018-04-21] MEDS: PIPER/TAZO 2.25GM/D5W PREMIX 50 ML IV SCH ×5 (00:15→23:37)
[2018-04-21 00:19] VITALS: BP 139/69
--- NOTE | 2018-04-21 00:20 | NUR ---
PT AWAKE. VITLA SIGNS STABLE. NO C/O ANY PAIJ Addendum: 04/21/18 at 0316 by Milly Nelson RN CANCEL ABOVE NOTES.
--- NOTE | 2018-04-21 00:20 | NUR ---
PT IS AWAKE. VITAL SIGNS TAKEN. STABLE WITH NO C/O OF ANY DISCOMFORT NOTED.
[2018-04-21] MEDS: BLOOD GLUCOSE MONITORING 1 DEV DEV FS SCH ×6 (01:40→23:37)
--- NOTE | 2018-04-21 01:40 | NUR ---
BLOOD SUGAR WAS CHECKED AT THIS TIME RESULT 136. WILL CONTINUE TO MONITOR.
[2018-04-21] MEDS: ALBUTEROL SULFATE/IPRATROPIU 3 ML SOL IH PRN (02:11)
[2018-04-21 03:40] VITALS: BP 124/80
--- NOTE | 2018-04-21 06:16 | NUR ---
BLOOD SUGAR THIS AM 122. NO INSULIN NEEDED.
[2018-04-21] MEDS: ALBUTEROL SULFATE/IPRATROPIU 3 ML SOL IH SCH ×3 (06:30→19:38)
--- NOTE | 2018-04-21 07:15 | NUR ---
ENDORSED PT IN STABLE CONDITION TO AM NURSE.
--- NOTE | 2018-04-21 07:15 | NUR ---
ASSUMED CONTINUITY OF CARE. NO SIGNS AND SYMPTOMS OF ACUTE DISTRESS NOTED. INITIAL ASSESSMENT DONE. HOB ELEVATED AND KEEP COMFORTABLE. FALL PRECAUTION APPLIED. CALL LIGHT WITHIN REACH.
[2018-04-21 07:30] LABS: WHITE BLOOD COUNT (AUTO) 4.1 K/uL (4.8-10.8)
[2018-04-21 07:31] LABS: BASOPHILS % (AUTO) 1.4 % (0.0-2.0); EOSINOPHILS # (AUTO) 0.2 K/uL (0-0.4); HEMOGLOBIN 8.6 g/dL (12.0-18.0); LYMPHOCYTES # (AUTO) 0.9 K/uL (2.0-11.5); LYMPHOCYTES % (AUTO) 22.4 % (20.5-51.1); MEAN CORPUSCULAR HEMOGLOBIN 26 pg (27-31); MEAN CORPUSCULAR HGB CONC 32 g/dL (33-37); MEAN CORPUSCULAR VOLUME 81.2 fL (80-94); MONOCYTES # (AUTO) 0.6 K/uL (0.8-1.0); MONOCYTES % (AUTO) 14.2 % (1.7-9.3); NEUTROPHILS # (AUTO) 2.3 K/uL (1.8-7.7); PLATELET COUNT (AUTO) 115 K/uL (140-450); RED BLOOD CELL COUNT(AUTO) 3.33 MIL/uL (4.20-6.10); RED CELL DISTRIBUTION WIDTH 19.1 % (11.6-13.7)
[2018-04-21 07:32] LABS: BASOPHILS # (AUTO) 0.1 K/uL (0.00-0.22)
[2018-04-21 07:33] LABS: ANION GAP 12.3 (8-16); CARBON DIOXIDE 20.9 mmol/L (21-32); CREATININE 3.2 mg/dL (0.7-1.3); POTASSIUM 5.2 mmol/L (3.5-5.1)
[2018-04-21 07:38] LABS: MAGNESIUM 2.2 mg/dL (1.8-2.4); PHOSPHORUS 4.5 mg/dL (2.5-4.9)
[2018-04-21 08:00] VITALS: BP 148/69
--- NOTE | 2018-04-21 08:00 | NUR ---
Patient's Plan of Care was discussed and reviewed with MACHINE UMBRELLA TIPPER: PINO
[2018-04-21] MEDS: FERROUS SULFATE 325 MG TABEC PO SCH (08:40)
[2018-04-21] MEDS: GABAPENTIN 300 MG CAP PO SCH ×2 (08:40→20:52)
[2018-04-21] MEDS: LACTOBACILLUS RHAMNOSUS GG 1 EACH CAP PO SCH (08:41)
[2018-04-21] MEDS: METOPROLOL SUCCINATE 50 MG TABER PO SCH (08:41)
[2018-04-21] MEDS: FAMOTIDINE 20 MG TAB PO SCH (08:41)
[2018-04-21] MEDS: ASPIRIN 81 MG TAB.CHEW PO SCH (08:41)
[2018-04-21] MEDS: ASCORBIC ACID 500 MG TAB PO SCH (08:41)
[2018-04-21] MEDS: SODIUM BICARBONATE 650 MG TAB PO SCH ×2 (08:42→20:52)
[2018-04-21] MEDS ORDERED: CLOP75TA26 PO (10:16)
[2018-04-21] MEDS ORDERED: GABA-638 PO (10:16)
--- NOTE | 2018-04-21 11:04 | NUR ---
DR. ENCISO CAME AND SPOKE TO PT. AND TO [facility] RUBY SOFTWARE DEVELOPER AT PT. BEDSIDE AND DISCUSSED PT. D/C PLAN.
--- NOTE | 2018-04-21 11:06 | NUR ---
BOWEN ENAMORADO CAME SPOKE TO PT., DR. ENCISO, AND [facility] LINE WALKER AT BEDSIDE.
[2018-04-21 12:00] VITALS: BP 136/69
--- NOTE | 2018-04-21 12:10 | NUR ---
FAXED CONCURRENT REVIEW TO [facility] [phone] FAXED CONCURRENT REVIEW TO [facility] [phone] PHONE ISIAH [phone] SPOKE WITH ISIAH AT [facility]. THE AUTH FOR [place] IS [id number] CANCEL OTHER AUTH FROM [facility]. USE AUTH [id number], PREMIER.
--- NOTE | 2018-04-21 12:23 | NUR ---
FAXED ORDER FOR LIFE VEST TO [facility]
--- NOTE | 2018-04-21 13:02 | NUR ---
RECEIVED A CALL FROM CORTNEY CASTRO [employer]. I FAXED FACE SHEET, ORDER, CARDIOLOGY CONSULT AND NOTES , H&P TO HER AT [phone] PHONE HE[facility]THER [phone]. I ALSO GAVE HER THE PHONE NUMBER TO [facility]
--- NOTE | 2018-04-21 14:30 | NUR ---
PHYSICAL THERAPY CO-SIGN The Physical Therapy Progress Notes documented by Finisher Screwdown have been reviewed. I concur with the documentation of this GLASS SETTER. Plan: continue PT as per plan of care if he remains in this hospital. Reviewed/Co-Signed by: Krissy Marcelo,PT Documentation Done by: Bronson Braden, GLASS SETTER Addendum: 04/21/18 at 1514 by Krissy Marcelo PT Amended: Links added.
--- NOTE | 2018-04-21 14:42 | NUR ---
INFORMED DR. ENCISO THAT PER VANESSA BROWN FROM [employer], HE NEED BOWEN ENAMORADO TO SIGN LIFE VEST FORM FOR INSURANCE APPROVAL. ALSO INFORMED CHARGE NURSE RADHA BANKS -BECKY.
[2018-04-21] MEDS: NACL 0.9% 1,000 ML IV SCH (15:20)
[2018-04-21 16:00] VITALS: BP 116/76
--- NOTE | 2018-04-21 17:22 | NUR ---
Rotary Driller Note: Per Neil Hutchins from [employer] , he is unsure at this time what time the person from their company is coming to our hospital today to fit life vest, I requested for him to contact patient's nurse when he finds out what time person will be coming, provided him with phone number of nurses' station, porter sample case Ely talbert.
--- NOTE | 2018-04-21 17:32 | NUR ---
RECEIVED A CALL EARLIER FROM CORTNEY FROM [employer]. SHE SAID THEY HAVE THE AUTH AND EVERYTHING IS SET UP FOR THE LIFE VEST.
--- NOTE | 2018-04-21 17:47 | NUR ---
RECEIVED A CALL FROM CORTNEY FROM [facility] LIFE VEST. THE LIVE VEST SHOULD BE HERE IN ABOUT 1 HOURS. I SPOKE WITH RACIEL FROM [facility] AND SHE DOESN'T WANT TO TAKE THE PATIENT LATE AT NIGHT TODAY SINCE HE HAS A NEW LIFE VEST. I INFORMED CASSANDRA PENAHAIR AND MAKEUP DESIGNER NURSE THAT I WILL SET UP TRANSPORT FOR TOMORROW MORNING WITH .
[2018-04-21] MEDS: FLUCONAZOLE 100 MG TAB PO SCH (18:45)
--- NOTE | 2018-04-21 19:15 | NUR ---
BEDSIDE REPORT GIVEN TO KIZZY LYNN. IVF INFUSING AT TKO. IN STABLE CONDITION. ALSO ENDORSED ABOUT BOWEN ENAMORADO TO SIGN LIFE VEST FORM FOR INSURANCE APPROVAL AND DR. ENCISO CANCELLATION OF D/C TO [facility].
--- NOTE | 2018-04-21 19:25 | NUR ---
RECEIVED REPORT FROM DAY SHIFT NURSE, PATIENT RESTING IN BED, STAFF FROM THE LIFE [employer] AT THE BEDSIDE. NO S/S OF DISTRESS NOTED, PATIENT STATED," I FEEL LIKE I NEED BREATHING TREATMENT." INFORMED PATIENT, RT WILL GIVE BREATHING TREATMENT SCHEDULED, IV PATENT AND INTACT, PICC LINE TO THE RT UPPER ARM, DRESSING DRY AND INTACT. CALL LIGHT WITHIN REACH, SAFETY MEASURE ENSURED, WILL CONTINUE TO MONITOR.
--- NOTE | 2018-04-21 19:51 | NUR ---
CALLED PTAUSTIN KEYES AT AND INFORMED THAT PT. D/C TO [facility] WAS CANCELLED AND WILL BE D/C TOMORROW 04/22/18.
[2018-04-21 20:00] VITALS: BP 126/67
--- NOTE | 2018-04-21 20:13 | NUR ---
NURSE FROM [employer] AT THE BEDSIDE SETTING UP VEST AND TEACHING PATIENT.
[2018-04-21] MEDS: SIMVASTATIN 10 MG TAB PO SCH (20:52)
[2018-04-21] MEDS: TAMSULOSIN 0.4 MG CAP PO SCH (20:52)
--- NOTE | 2018-04-21 21:03 | NUR ---
PLT 115, TALKED WITH PHARMACIST YANG, PER THE PHARMACIST, IT'S OKAY TO GIVE HEPARIN TONIGHT, AND THEY WILL MONITOR PATIENT'S LAB. DUE MEDICATION ADMINISTERED, PATIENT TOLERATED WELL. CALL LIGHT WITHIN REACH, SAFETY MEASURE ENSURED, WILL CONTINUE TO MONITOR.
[2018-04-22] VITALS: BP 127/70
--- NOTE | 2018-04-22 00:12 | NUR ---
PATIENT WAS SLEEPING, EASY TO AROUSE, VITAL SIGNS STABLE, NO S/S OF DISTRESS NOTED, CALL LIGHT WITHIN REACH, SAFETY MEASURE ENSURED, WILL CONTINUE TO MONITOR.
--- NOTE | 2018-04-22 02:51 | NUR ---
DR. NEHAL Banks HAS NOT COME TO THE UNIT. PATIENT IS SLEEPING AT THIS TIME. DENTURE IS IN THE CUP NEXT TO THE PATIENT.
[2018-04-22 04:00] VITALS: BP 113/88
--- NOTE | 2018-04-22 04:15 | NUR ---
VITAL SIGNS STABLE, NO S/S OF DISTRESS NOTED, CALL LIGHT WITHIN REACH, SAFETY MEASURE ENSURED, WILL CONTINUE TO MONITOR.
[2018-04-22] MEDS: BLOOD GLUCOSE MONITORING 1 DEV DEV FS SCH (05:42)
[2018-04-22] MEDS: PIPER/TAZO 2.25GM/D5W PREMIX 50 ML IV SCH (05:50)
[2018-04-22] MEDS: ALBUTEROL SULFATE/IPRATROPIU 3 ML SOL IH SCH (06:40)
--- NOTE | 2018-04-22 07:25 | NUR ---
ENDORSED PLAN OF CARE TO DAY SHIFT RN, PATIENT RESTING IN BED IN STABLE CONDITION.
--- NOTE | 2018-04-22 07:26 | NUR ---
RECEIVED REPORT FROM GIS PROFESSOR NURSE KIZZY AT BEDSIDE FOR CONTINUITY OF CARE. PT IS AWAKE AND ORIENTED X4. INTRODUCED SELF AND UPDATED BOARD. PT WITH PICC LINE TO R UPPER ARM. IV TO L HAND 22G INTACT. PT DENIES PAIN. NO COUGH. LUNG SOUNDS CLEAR ON AUSCULTATION. SKIN INTACT. CALL LIGHT WITHIN REACH. BED IN LOW POSITION, WHEELS LOCKED. WILL CONTINUE TO MONITOR.
[2018-04-22 08:00] VITALS: BP 126/68
[2018-04-22 08:27] LABS: MAGNESIUM 2.4 mg/dL (1.8-2.4)
[2018-04-22] MEDS ORDERED: AMOX500C25 PO (08:39)
[2018-04-22] MEDS ORDERED: AMOX1TAB8 PO (08:43)
[2018-04-22 09:19] LABS: WHITE BLOOD COUNT (AUTO) 4.5 K/uL (4.8-10.8)
[2018-04-22 09:20] LABS: BASOPHILS % (AUTO) 2.6 % (0.0-2.0); EOSINOPHILS % (AUTO) 4.1 % (0.0-4.0); HEMOGLOBIN 8.6 g/dL (12.0-18.0); LYMPHOCYTES % (AUTO) 21.9 % (20.5-51.1); MEAN CORPUSCULAR HEMOGLOBIN 24 pg (27-31); MEAN CORPUSCULAR HGB CONC 30 g/dL (33-37); MEAN CORPUSCULAR VOLUME 81.7 fL (80-94); MONOCYTES % (AUTO) 14.1 % (1.7-9.3); NEUTROPHILS % (AUTO) 57.3 % (42.2-75.2); PLATELET COUNT (AUTO) 121 K/uL (140-450); RED BLOOD CELL COUNT(AUTO) 3.55 MIL/uL (4.20-6.10); RED CELL DISTRIBUTION WIDTH 19.6 % (11.6-13.7)
--- NOTE | 2018-04-22 09:40 | NUR ---
PAGED DR. Jono CALVERT SAID HE SIGNED FORMS FOR LIFE [employer] AND WAS FAXED ALREADY. TOLD HIM PT IS BEING D/C TODAY AT 10:30.
--- NOTE | 2018-04-22 09:41 | NUR ---
CALLED [facility] AT [phone] AND GAVE REPORT TO VICENTE. SAID HE ALREADY GOT FULL REPORT YESTERDAY. GAVE UPDATE ON PT. WILL BE PICKED UP AT 10:30. LEFT CALL BACK NUMBER
[2018-04-22 09:42] LABS: ANION GAP 15.6 (8-16); CARBON DIOXIDE 18.7 mmol/L (21-32); CREATININE 3.7 mg/dL (0.7-1.3); POTASSIUM 5.3 mmol/L (3.5-5.1)
[2018-04-22] MEDS: ASCORBIC ACID 500 MG TAB PO SCH (09:51)
[2018-04-22] MEDS: FERROUS SULFATE 325 MG TABEC PO SCH (09:51)
[2018-04-22] MEDS: LACTOBACILLUS RHAMNOSUS GG 1 EACH CAP PO SCH (09:51)
[2018-04-22] MEDS: SODIUM BICARBONATE 650 MG TAB PO SCH (09:51)
[2018-04-22] MEDS: METOPROLOL SUCCINATE 50 MG TABER PO SCH (09:52)
[2018-04-22] MEDS: GABAPENTIN 300 MG CAP PO SCH (09:52)
[2018-04-22] MEDS: ASPIRIN 81 MG TAB.CHEW PO SCH (09:52)
[2018-04-22] MEDS: FAMOTIDINE 20 MG TAB PO SCH (09:52)
--- NOTE | 2018-04-22 10:41 | NUR ---
FAXED CONCURRENT REVIEW TO [facility] [phone] ALSO FAXED DISCHARGE SUMMARY FAXED CONCURRENT REVIEW TO [facility] INCLUDING DISCHARGE SUMMARY [phone] EARLIER CALLED RIVAS PENA AND GAVE HER THE PHONE NUMBER AND THE ADDRESS TO [facility]. INFORMED HER BUSINESS RISK ANALYST WOULD BE BY AT 10:30A.M.
[2018-04-22] MEDS ORDERED: ASCO1CAP75 PO (10:51)
--- NOTE | 2018-04-22 11:15 | NUR ---
PT D/C TO GO TO [facility] IN [place]. CONTACT CENTER ENGINEER FROM SNF WAS AT BEDSIDE WHEN PT LEFT. GAVE REPORT TO TRANSPORTERS. LIFE VEST WAS PUT ON PT. IV TO L HAND 22G WAS REMOVED. IV CATHETER TIP INTACT. APPLIED DRESSING AND PRESSURE TO SITE. NO BLEEDING NOTED. REMOVED ID BAND AND TELE MONITOR. PT LEFT UNIT VIA GURNEY ACCOMPANIED BY TRANSPORTERS. PT LEFT IN STABLE CONDITION.
--- NOTE | 2018-04-22 12:24 | NUR ---
PT NOTES CHART REVIEWED AND CLEARED FOR PT BY RN. PATIENT IN SEMIFOWLER POSITION RESTING, BUT APPEARS DROWSY AT THIS TIME AND ASKS IF POSSIBLE TO TRY LATER, "JUST GOT MY MEDICATION" PER PATIENT. PATIENT TOO DROWSY AT THIS TIME AND WILL TRY AGAIN LATER. TRAY AND CALL LIGHT IN REACH. RN MADE AWARE (ATTEMPTED @1030). RETURNED TO PATIENTS ROOM AND IS BEING D/C AT THIS TIME. UNABLE TO PROVIDE PHYSICAL THERAPY D/T PATIENT BEING D/C FROM HOSPITAL. Addendum: 04/22/18 at 1424 by Anne-Marie Martin PT PHYSICAL THERAPY CO-SIGN The Physical Therapy Progress Notes documented by Physician Credentialing Specialist have been reviewed. Reviewed/Co-Signed by: Anne-Marie Martin PT Documentation Done by: RULA POE, MEL
[2018-04-22] MEDS ORDERED: FLUC100T PO (14:29)
[2018-05-01] MEDS ORDERED: IPRA3AMP IH (11:46)
== END 2018-04-22 11:15 | DRG 871 ==
LOC: MED 21:23 → MTU 23:41
PROVIDERS: ADMIT General Practice; ATTEND General Practice
DX: A41.9 Sepsis, unspecified organism (principal); I21.A1 Myocardial infarction type 2; N17.0 Acute kidney failure with tubular necrosis; I50.43 Acute on chronic combined systolic (congestive) and diastolic (congestive) heart failure; E43 Unspecified severe protein-calorie malnutrition; G93.41 Metabolic encephalopathy; J96.21 Acute and chronic respiratory failure with hypoxia; J18.9 Pneumonia, unspecified organism; E87.2 Acidosis; I13.2 Hypertensive heart and chronic kidney disease with heart failure and with stage 5 chronic kidney disease, or end stage renal disease; N18.5 Chronic kidney disease, stage 5; D61.818 Other pancytopenia; N39.0 Urinary tract infection, site not specified; E86.0 Dehydration; E11.65 Type 2 diabetes mellitus with hyperglycemia; E11.22 Type 2 diabetes mellitus with diabetic chronic kidney disease; E11.42 Type 2 diabetes mellitus with diabetic polyneuropathy; I34.0 Nonrheumatic mitral (valve) insufficiency; I07.1 Rheumatic tricuspid insufficiency; I27.21 Secondary pulmonary arterial hypertension; E11.51 Type 2 diabetes mellitus with diabetic peripheral angiopathy without gangrene; E83.39 Other disorders of phosphorus metabolism; E83.51 Hypocalcemia; Y95 Nosocomial condition; E87.8 Other disorders of electrolyte and fluid balance, not elsewhere classified; E78.5 Hyperlipidemia, unspecified; E87.5 Hyperkalemia; F32.9 Major depressive disorder, single episode, unspecified; I25.10 Atherosclerotic heart disease of native coronary artery without angina pectoris; J44.9 Chronic obstructive pulmonary disease, unspecified; K21.9 Gastro-esophageal reflux disease without esophagitis; Z79.02 Long term (current) use of antithrombotics/antiplatelets; Z79.82 Long term (current) use of aspirin; Z91.19 Patient's noncompliance with other medical treatment and regimen; Z95.5 Presence of coronary angioplasty implant and graft; Z88.5 Allergy status to narcotic agent; Z88.8 Allergy status to other drugs, medicaments and biological substances; Z79.899 Other long term (current) drug therapy; Z83.3 Family history of diabetes mellitus; Z68.31 Body mass index [BMI] 31.0-31.9, adult; Z71.3 Dietary counseling and surveillance
CPT/HCPCS: 36415; 36600; 70450; 71045; 74018; 76604; 76770; 78582; 80048; 80053; 80305; 81001; 82140; 82150; 82306; 82803; 82948; 83036; 83540; 83605; 83690; 83735; 83880; 84100; 84436; 84439; 84443; 84479; 84484; 85025; 85379; 85610; 85730; 86886; 86900; 86901; 87040; 87081; 87086; 93005; 93925; 93970; 94640; 96361; 96365; 96375; 97110; 97116; 97140; 97530; 99291; J1644; J1815; J2543; J3370; J7030; J7060; J7613; J7620; Q0092

== ENCOUNTER 2018-04-27 01:45 | Inpatient (IN) | payer OTHER ==
[~2018-04-27] VITALS: Ht 170.2 cm; Wt 106.1 kg
[~2018-04-27 01:45] MED LIST: AMLO10TA PO; AMOX1TAB8 PO; ASCO1CAP75 PO; ASPI81CT89 PO; CLOP75TA26 PO; FLUC100T PO; GABA-638 PO; METH500T14 PO; METO50TE2 PO; PANT40EC PO; SIMV10TA1 PO; TAMS0.4C96 PO
[2018-04-27 01:50] VITALS: BP 125/75
--- NOTE | 2018-04-27 01:51 | NUR ---
MARKELL DUE TO FACILITY, [facility] . REQUESTED TO GET CHECKED DUE TO HIS BRADYCARDIA. HR IS AT 45 BPM. PT IS ABLE TO COMMUNICATE WITH SOME SLIGHT MUMBLING. HE STATED THAT HE IS IN SOME PAIN ON HIS HIP, BACK AND LEGS. PT DENIES CHEST PAIN AT THIS TIME. A/O X 4. PT HAS SOME EDEMA TO THE EXTREMETIES. PT STATED HE IS ALLERGIC TO CODEINE AND GUAIFENESIN. PT IS NON AMBULATORY. SKIN IS PINK/WARM/DRY; PT DENIES ANY FEVER,, SOB, OR COUGH AT THIS TIME; PATIENT STATES PAIN OF 5/10 AT THIS TIME; VSS; PATIENT POSITIONED FOR COMFORT; HOB ELEVATED; BEDRAILS UP X2; BED DOWN. ER MD MADE AWARE OF PT STATUS.
[2018-04-27] MEDS ORDERED: GABA300C PO (02:04)
--- NOTE | 2018-04-27 02:50 | NUR ---
PT RESTING IN BED. BASELINE VITALS STABLE.
[2018-04-27 02:55] LABS: HEMATOCRIT 25.9 % (36-52); HEMOGLOBIN 8.1 g/dL (12.0-18.0); MEAN CORPUSCULAR HEMOGLOBIN 26 pg (27-31); MEAN CORPUSCULAR HGB CONC 32 g/dL (33-37); MEAN CORPUSCULAR VOLUME 81.3 fL (80-94); PLATELET COUNT (AUTO) 97 K/uL (140-450); RED BLOOD CELL COUNT(AUTO) 3.18 MIL/uL (4.20-6.10); RED CELL DISTRIBUTION WIDTH 19.5 % (11.6-13.7); WHITE BLOOD COUNT (AUTO) 5.1 K/uL (4.8-10.8)
[2018-04-27 02:57] LABS: ALBUMIN 2.1 g/dL (3.4-5.0); ANION GAP 17.6 (8-16); CARBON DIOXIDE 17.7 mmol/L (21-32); EOSINOPHILS % (MANUAL) 1 % (0-4); LYMPHOCYTES % (MANUAL) 21 % (20-46); MONOCYTES % (MANUAL) 16 % (5-12); POTASSIUM 5.3 mmol/L (3.5-5.1); TOTAL BILIRUBIN 0.5 mg/dL (0.0-1.0)
--- NOTE | 2018-04-27 04:26 | NUR ---
PT IS RESTING. VITALS STABLE
[2018-04-27] MEDS ORDERED: NACL 0.9% 1,000 ML IV SCH (05:12)
[2018-04-27] MEDS ORDERED: ACETAMINOPHEN 325 MG TAB PO PRN (05:15)
[2018-04-27] MEDS ORDERED: ONDANSETRON 4 MG/2 ML VIAL IM/IVP PRN (05:15)
[2018-04-27] MEDS ORDERED: DOCUSATE SODIUM 100 MG GELCAP PO PRN (05:15)
--- NOTE | 2018-04-27 05:40 | NUR ---
Patient will be admitted to care of DR. URIOSTEGUI.. Admited to TELEMETRY. Will go to room 106B. Belongings list completed. Report to CARLOS ENRIQUE PENA.
--- NOTE | 2018-04-27 05:45 | NUR ---
Pt report given to CARLOS ENRIQUE GAMBOA. Transfer of care at this time. PT VITALS STABLE UPON TRANSFER
--- NOTE | 2018-04-27 05:50 | NUR ---
RECEIVED PT FROM ER PER JESSICA, TRANSFERRED TO BED, PT HAD LARGE LOOSE YELLOW STOOL, PERINEAL CARE DONE, PT AAOX3, VERBALLY RESPONSIVE BUT SLOW TO ANSWER, VITAL SIGNS TAKEN:BP-100/54, HR-47, RR-18, TEMP-97.5, SAT-95%, ON O2 AT 2L/NC, CHEST AREA WITH LIFE VEST IN PLACE, SAFETY MEASURES IN PLACE, SIDE RAILS UP AND BED ALARM ON, CALL LIGHT WITHIN REACH.
[2018-04-27] MEDS ORDERED: SODIUM POLYSTYRENE 15 GM/60 ML UDBTL PO ONE (06:00)
--- NOTE | 2018-04-27 06:50 | NUR ---
KAYEXALATE PO GIVEN, TOLERATED WELL, IVF OF NS @ 60ML/H INFUSING WELL, RT ARM BRUISES AND LEFT LATERAL FOOT SKIN TEAR COVERED WITH COMPOSITE DRESSING NOTED, MAINTAINED ON NPO EXCEPT MEDS.
[2018-04-27] MEDS ORDERED: SODIUM POLYSTYRENE 15 GM/60 ML UDBTL PO SCH (07:00)
[2018-04-27 07:07] LABS: CHOL/HDL RATIO 1.5 (1-4.5); FREE T4 (FREE THYROXINE) 0.89 ng/dL (0.76-1.46); MAGNESIUM 2.3 mg/dL (1.8-2.4); PHOSPHORUS 7.4 mg/dL (2.5-4.9); THYROID STIMULATING HORMONE 8.57 uIU/mL (0.34-3.74)
--- NOTE | 2018-04-27 07:10 | NUR ---
PT SLEEPING, VERBALLY RESPONSIVE BUT DROWSY, GOES BACK TO SLEEP RIGHT AWAY, DR ENCISO EXAMINING THE PT, BEDSIDE REPORT GIVEN TO GILES PENA FOR CONTINUITY OF CARE.
--- NOTE | 2018-04-27 07:25 | NUR ---
RECEIVED REPORT FROM SUPERVISOR DRY CLEANING NURSE, PT IS SLEEPING IN BED, LETHARGIC, AAOX2, PT IS ON O2 2L NC, PT HAS IV ON HIS LEFT HAND, PATENT, INTACT, FLUSHING WELL, PT HAS SKIN TEAR ON HIS LEFT FOOT, NO S/S OF RESPIRATORY DISTRESS NOTED AT THIS TIME, DISCUSSED PLAN OF CARE WITH PT, PT DROWSY, DR. ENCISO IS AT PATIENT BEDSIDE AT THIS TIME, SAFETY FALL/PRECAUTIONS ARE IN PLACE, CALL LIGHT WITHIN REACH, WILL CONTINUE TO MONITOR.
[2018-04-27 08:00] VITALS: BP 99/43
[2018-04-27] MEDS ORDERED: BUMETANIDE 1 MG/4 ML VIAL IV SCH (08:00)
[2018-04-27] MEDS ORDERED: GABAPENTIN 300 MG CAP PO SCH ×2 (08:35→13:10)
[2018-04-27] MEDS ORDERED: CALCIUM ACETATE 667 MG TAB PO SCH (08:45)
[2018-04-27] MEDS: amLODIPine 5 MG TAB PO SCH (09:00)
[2018-04-27] MEDS ORDERED: POTASSIUM CLAV PO SCH (09:00)
[2018-04-27] MEDS ORDERED: AMOXICILLIN PO SCH (09:00)
[2018-04-27] MEDS: ASPIRIN 81 MG TAB.CHEW PO SCH (09:00)
--- NOTE | 2018-04-27 09:30 | NUR ---
PT CLEANED AND TURNED FOR COMFORT, ALL NEEDS ARE MET AT THIS TIME, CALL LIGHT IS WITHIN REACH.
[2018-04-27] MEDS ORDERED: CALCIUM GLUCONATE 10% 1,000 MG in NACL 0.9% 50 ML IV SCH (09:55)
[2018-04-27] MEDS: SODIUM BICARBONATE 8.4% 50 MEQ in NACL 0.9% 1,000 ML IV SCH (09:55)
[2018-04-27] MEDS ORDERED: AMOXIL/CLAVULANATE 875/125 MG 1 TAB PO SCH ×2 (10:30→21:00)
[2018-04-27] MEDS: TAMSULOSIN 0.4 MG CAP PO SCH (10:41)
[2018-04-27] MEDS: PANTOPRAZOLE 40 MG TABEC PO SCH (10:42)
[2018-04-27 12:00] VITALS: BP 110/48
[2018-04-27 16:00] VITALS: BP 112/50
[2018-04-27] MEDS: PIPER/TAZO 2.25GM/D5W PREMIX 50 ML IV SCH (17:14)
--- NOTE | 2018-04-27 19:30 | NUR ---
RECEIVED FROM AM RN IN BED. AWAKE AND ABLE TO VERBALIZE NEEDS WELL. CHARLIE NOTED . PT. CARE PLANS FOR THE NIGHT DISCUSSED WITH HIM. DENIES PAIN AT THIS TIME. CALL LIGHT WITH IN REACH AND ON TELEMETRY MONITORING.
[2018-04-27 21:50] VITALS: BP 116/52
[2018-04-27] MEDS: LACTULOSE 20 GM/30 ML UDC PO SCH (22:01)
[2018-04-27] MEDS: SIMVASTATIN 10 MG TAB PO SCH (22:01)
[2018-04-27] MEDS: RIFAXIMIN 550 MG TAB PO SCH (22:01)
--- NOTE | 2018-04-27 22:30 | NUR ---
PT. STILL AWAKE AND WATCHING TV. NO COMPLAINTS DONE AT THIS TIME. KEPT COMFORTABLE. IVF SITE INTACT AND NO INFILTRATION.TELEMETRY MONITORING. DENIES PAIN AT THIS TIME.
[2018-04-28] VITALS (7 sets, daily range): BP systolic 116–131; BP diastolic 45–73
[2018-04-28] MEDS: PIPER/TAZO 2.25GM/D5W PREMIX 50 ML IV SCH ×5 (00:05→23:59)
--- NOTE | 2018-04-28 00:46 | NUR ---
PT. TURNED TO SIDES. WAKES UP EASILY WHEN TOUCHED OR CALLED BY NAME. ABLE TO VERBALIZE NEEDS WELL. TELEMETRY MONITORING. PROVIDED WITH SNACK /FULL LIQUID DIET RT COMPLAINED HUNGRY. DENIES PAIN AT THIS TIME. CALL LIGHT WITH IN REACH.
--- NOTE | 2018-04-28 03:00 | NUR ---
PT. CLEANED AND BEDDINGS CHANGED RT HAD LARGE WET SEMI SOLID STOOL. PT. ABLE TO VERBALIZE NEEDS WELL. A/O X 4. ASSISTED WITH TURNING AND PILLOW SUPPORT TO PRESSURE AREAS. CALL LIGHT WITH IN REACH. NO SOB. ON AT 2LPM/NC. LIFE VEST IN PLACE AND ON. TELEMETRY MONITORING .
[2018-04-28] MEDS: SODIUM BICARBONATE 8.4% 50 MEQ in NACL 0.9% 1,000 ML IV SCH ×2 (03:25→16:22)
--- NOTE | 2018-04-28 07:11 | NUR ---
SLEPT IN AND OUT. MORE ALERT. ABLE TO VERBALIZE NEEDS WELL. NO SOB. WITH 02 AT 2LPM/NC. CALL LIGHT WITH IN REACH. TELEMETRY MONITORING. ENDORSED TO THE NEXT RN FOR CONTINUITY OF CARE.
--- NOTE | 2018-04-28 07:12 | NUR ---
RECEIVED REPORT FROM RADIOLOGICAL ENGINEER NURSE. PATIENT LYING DOWN IN BED SLEEPING, AROUSABLE BY VOICE. NO DISTRESS NOTED. DENIES ANY PAIN AT THIS TIME. RESPIRATIONS EVEN, UNLABORED, ON ROOM AIR. AAOX3, CALM, COOPERATIVE, SKIN COLOR APPROPRIATE TO ETHNICITY, WARM TO TOUCH. SKIN IS INTACT. LUNGS COARSE UPON EXPIRATION THROUGHOUT ALL LOBES. ABDOMEN SOFT, NON-DISTENDED. +1 PITTING EDEMA NOTED ON B/L UE & LE. IV SITE INTACT, PATENT, INFUSING IVF PER MD ORDERS. PATIENT HAS LIFEVEST ON DUE TO ACS/BRADYCARDIA. REVIEWED PLAN OF CARE WITH PATIENT. PATIENT VERBALIZED UNDERSTANDING. SAFETY MEASURES IN PLACE, CALL LIGHT WITHIN REACH. WILL CONTINUE TO MONITOR.
[2018-04-28 07:13] LABS: BASOPHILS % (AUTO) 0.2 % (0.0-2.0); EOSINOPHILS # (AUTO) 0.1 K/uL (0-0.4); EOSINOPHILS % (AUTO) 3.2 % (0.0-4.0); HEMATOCRIT 25.7 % (36-52); HEMOGLOBIN 7.9 g/dL (12.0-18.0); LYMPHOCYTES # (AUTO) 0.6 K/uL (2.0-11.5); LYMPHOCYTES % (AUTO) 16.6 % (20.5-51.1); MEAN CORPUSCULAR HEMOGLOBIN 25 pg (27-31); MEAN CORPUSCULAR HGB CONC 31 g/dL (33-37); MEAN CORPUSCULAR VOLUME 82.2 fL (80-94); MONOCYTES # (AUTO) 0.5 K/uL (0.8-1.0); MONOCYTES % (AUTO) 12.7 % (1.7-9.3); NEUTROPHILS # (AUTO) 2.5 K/uL (1.8-7.7); NEUTROPHILS % (AUTO) 67.3 % (42.2-75.2); PLATELET COUNT (AUTO) 63 K/uL (140-450); RED BLOOD CELL COUNT(AUTO) 3.12 MIL/uL (4.20-6.10); RED CELL DISTRIBUTION WIDTH 21.3 % (11.6-13.7); WHITE BLOOD COUNT (AUTO) 3.7 K/uL (4.8-10.8)
[2018-04-28 07:56] LABS: ANION GAP 18.3 (8-16); CARBON DIOXIDE 16.5 mmol/L (21-32); POTASSIUM 4.8 mmol/L (3.5-5.1)
[2018-04-28 07:59] LABS: CREATININE 7.4 mg/dL (0.7-1.3)
[2018-04-28] MEDS: RIFAXIMIN 550 MG TAB PO SCH ×2 (08:37→21:12)
[2018-04-28] MEDS: amLODIPine 5 MG TAB PO SCH (08:37)
[2018-04-28] MEDS: LACTULOSE 20 GM/30 ML UDC PO SCH ×2 (08:37→21:11)
[2018-04-28] MEDS: GABAPENTIN 300 MG CAP PO SCH (08:37)
[2018-04-28] MEDS: PANTOPRAZOLE 40 MG TABEC PO SCH (08:37)
[2018-04-28] MEDS: ASPIRIN 81 MG TAB.CHEW PO SCH (08:37)
[2018-04-28] MEDS: TAMSULOSIN 0.4 MG CAP PO SCH (08:37)
--- NOTE | 2018-04-28 08:51 | NUR ---
PATIENT LYING DOWN IN BED SLEEPING, AROUSABLE BY VOICE. ABLE TO EAT FULL LIQUID BREAKFAST TODAY WITH ASSISTANCE. DENIES ANY NAUSEA/VOMITING. SCHEDULED MEDICATIONS DUE GIVEN. SAFETY MEASURES IN PLACE, CALL LIGHT WITHIN REACH. WILL CONTINUE TO MONITOR.
--- NOTE | 2018-04-28 11:38 | NUR ---
PATIENT HAS BEEN SCREENED AND CATEGORIZED MODERATE NUTRITION RISK. PATIENT WILL BE SEEN WITHIN 3-5 DAYS OF ADMISSION. 04/29/18 - 05/01/[address]
--- NOTE | 2018-04-28 12:07 | NUR ---
[phone] PHONE [phone] FAXED INITIAL REVIEW TO [facility] [phone] PHONE AKILAH [phone]
--- NOTE | 2018-04-28 13:26 | NUR ---
PATIENT LYING DOWN IN BED SLEEPING, AROUSABLE BY VOICE. NO DISTRESS NOTED. HAS MILD NOSE BLEED DUE TO OXYGEN VIA NC. ASKED RT TO PLACE HUMIDIFYER TO HELP PREVENT NOSE BLEED. RT TO SEE PATIENT. SCHEDULED ANTIBIOTIC MEDICATION GIVEN. SAFETY MEASURES IN PLACE, CALL LIGHT WITHIN REACH. WILL CONTINUE TO MONITOR.
[2018-04-28] MEDS ORDERED: EPOETIN ALFA 10,000 UNITS/ML VIAL SUBQ SCH (13:54)
--- NOTE | 2018-04-28 15:32 | NUR ---
PATIENT LYING DOWN IN BED COMFORTABLY. NO DISTRESS NOTED. DENIES ANY PAIN. OXYGEN VIA NC OFF AT THIS TIME DUE TO NOSE BLEEDING. O2 SAT AT 93% ON ROOM AIR. SCHEDULED MEDICATION DUE GIVEN. SAFETY MEASURES IN PLACE, CALL LIGHT WITHIN REACH. WILL CONTINUE TO MONITOR.
[2018-04-28] MEDS: CALCIUM ACETATE 667 MG TAB PO SCH (16:22)
--- NOTE | 2018-04-28 16:40 | NUR ---
PATIENT LYING IN BED SLEEPING, AROUSABLE BY VOICE. NO DISTRESS NOTED. RESPIRATIONS EVEN, UNLABORED, ON ROOM AIR WITH O2 SAT AT 92%. SCHEDULED MEDICATIONS DUE GIVEN. SAFETY MEASURES IN PLACE, CALL LIGHT WITHIN REACH. WILL CONTINUE TO MONITOR.
--- NOTE | 2018-04-28 18:15 | NUR ---
ASSISTED GAS PUMPING STATION OPERATOR IN CLEANING AND REPOSITIONING PATIENT. PATIENT HAS REDNESS ON PERINEAL AREA DUE TO INCONTINENCE DERMATITIS. WILL ASK MD FOR A CREAM. WILL CONTINUE TO MONITOR.
--- NOTE | 2018-04-28 18:30 | NUR ---
PERFORMED BLADDER SCAN TO CHECK FOR RESIDUAL, 111 ML AT THIS TIME. WILL CONTINUE TO MONITOR.
--- NOTE | 2018-04-28 19:25 | NUR ---
GAVE REPORT TO WHEEL TRUER NURSE FOR CONTINUITY OF CARE. PATIENT IN STABLE CONDITION.
--- NOTE | 2018-04-28 19:26 | NUR ---
RECEIVED PT IN STABLE CONDITION FROM AM NURSE. AWAKE,ALERT AND ORIENTED X3-4. ON TELE MONITOR AND LIFE VEST IN PLACED. NO ACUTE DISTRESS NOTED. BEDREST. WITH IV FLUIDS INFUSING ON THE LEFT HAND #22. CLEAR AND PATENT. WITH NO C/O ANY PAIN NOTED. LT HEEL WITH SKIN TEAR, DRESSING IN PLACED. SACRAL AREA WITH REDNESS. BED ON LOW POSITION. FREQUENT ROUNDS NEEDED. CALL LIGHT WITHIN EASY REACH. PLAN OF CARE DISCUSSED AND VERBALIZED UNDERSTANDING. WILL CONTINUE TO MONITOR.
--- NOTE | 2018-04-28 20:00 | NUR ---
DR. BERMEO CAME AND SEEN PT. EXPLAINED TO PT ABOUT PLACEMENTOF HEMODIALYSIS CATHETER TOMORROW. PT VERBALIZED UNDERSTANDING. TO DC ASPIRIN PER DR. BERMEO.
[2018-04-28] MEDS: SIMVASTATIN 10 MG TAB PO SCH (21:12)
[2018-04-28] MEDS ORDERED: Z-GUARD PASTE TP PRN (21:25)
--- NOTE | 2018-04-28 23:50 | NUR ---
CLARIFIED WITH PHARMACY THAT ZOSYN IVPB IS COMPATIBLE WITH THE PRESENT IVF OF NS WITH SODIUM BICARBONATE .
[2018-04-29] MEDS: SODIUM BICARBONATE 8.4% 50 MEQ in NACL 0.9% 1,000 ML IV SCH (00:26)
--- NOTE | 2018-04-29 02:00 | NUR ---
MADE ROUNDS. PT ASLEEP. NO S/S OF ANY DISCOMFORT NOR PAIN NOTED. WILL CONTINUE TO MONITOR.
--- NOTE | 2018-04-29 03:25 | NUR ---
MADE ROUNDS. PT IS AWAKE. NO C/O ANY DISCOMFORT NOTED.
[2018-04-29 03:50] VITALS: BP 119/47
--- NOTE | 2018-04-29 05:30 | NUR ---
PT HAD EPISODES OF SCANTY NOSE BLEEDING. DR. LLANES ,RESIDENT MD WAS MADE AWARE . CAME AND CHECKED ON PT. HE SAID PUT ICE PACK ON TOP OF NOSE AND TO CONTINUE TO MONITOR.
[2018-04-29] MEDS: PIPER/TAZO 2.25GM/D5W PREMIX 50 ML IV SCH ×4 (05:37→23:32)
--- NOTE | 2018-04-29 06:25 | NUR ---
CHECKED ON PT. NO NOSE BLEEDING NOTED AT THIS TIME.
[2018-04-29 06:50] LABS: T4 (THYROXINE) 6.3 ug/dL (4.5-12.0)
[2018-04-29 06:55] LABS: BASOPHILS % (AUTO) 0.2 % (0.0-2.0); EOSINOPHILS # (AUTO) 0.1 K/uL (0-0.4); EOSINOPHILS % (AUTO) 2.5 % (0.0-4.0); HEMATOCRIT 24.4 % (36-52); HEMOGLOBIN 7.7 g/dL (12.0-18.0); LYMPHOCYTES # (AUTO) 0.9 K/uL (2.0-11.5); LYMPHOCYTES % (AUTO) 17.3 % (20.5-51.1); MEAN CORPUSCULAR HEMOGLOBIN 26 pg (27-31); MEAN CORPUSCULAR HGB CONC 31 g/dL (33-37); MEAN CORPUSCULAR VOLUME 81.3 fL (80-94); MONOCYTES # (AUTO) 0.7 K/uL (0.8-1.0); MONOCYTES % (AUTO) 13.2 % (1.7-9.3); NEUTROPHILS # (AUTO) 3.3 K/uL (1.8-7.7); NEUTROPHILS % (AUTO) 66.8 % (42.2-75.2); PLATELET COUNT (AUTO) 70 K/uL (140-450); RED BLOOD CELL COUNT(AUTO) 3.01 MIL/uL (4.20-6.10); RED CELL DISTRIBUTION WIDTH 20.5 % (11.6-13.7); WHITE BLOOD COUNT (AUTO) 4.9 K/uL (4.8-10.8)
--- NOTE | 2018-04-29 07:10 | NUR ---
ENDORSED PT IN STABLE CONDITION TO AM NURSE FOR CONTINUITY OF CARE.
--- NOTE | 2018-04-29 07:20 | NUR ---
RECEIVED REPORT FROM OIL SPRAYER NURSE. PATIENT LYING DOWN IN BED SLEEPING, AROUSABLE BY VOICE. NO DISTRESS NOTED. DENIES ANY PAIN. RESPIRATIONS EVEN, UNLABORED, ON ROOM AIR. AAOX3, CALM, COOPERATIVE, SKIN COLOR APPROPRIATE TO ETHNICITY, WARM TO TOUCH. HAS LEFT FOOT SKIN TEAR, DRESSING DRY AND INTACT, HAS SACRAL AND PERINEAL REDNESS WITH SCROTAL EXCORIATION DUE TO INCONTINENT DERMATITIS. LUNGS COARSE ON EXPIRATION. ABDOMEN SOFT. B/L UE AND LE +1 PITTING EDEMA NOTED. REVIEWED PLAN OF CARE WITH PATIENT. PATIENT VERBALIZED UNDERSTANDING. SAFETY MEASURES IN PLACE, CALL LIGHT WITHIN REACH. WILL CONTINUE TO MONITOR.
--- NOTE | 2018-04-29 07:33 | NUR ---
OR NURSES ON FLOOR READY TO TAKE PATIENT TO OR FOR HEMODIALYSIS ACCESS DEVICE PLACEMENT. REPORT GIVEN TO OR NURSES. WILL CONTINUE TO MONITOR. WHEN PATIENT RETURNS.
[2018-04-29] MEDS ORDERED: LIDOCAINE MPF 1% - 5 mL VIAL 5 ML ONE (07:39)
[2018-04-29] MEDS: BUPIVACAINE-MPF/EPI 0.25% 30 ML VIAL INJ ONE ×2 (07:39→11:00)
[2018-04-29] MEDS ORDERED: ceFAZolin 1,000 MG VIAL ONE (07:54)
[2018-04-29 07:57] LABS: PROTHROMBIN TIME 12.7 secs (10.8-13.4)
[2018-04-29 08:00] VITALS: BP 116/48
[2018-04-29] MEDS: CALCIUM ACETATE 667 MG TAB PO SCH ×3 (08:00→18:11)
[2018-04-29 09:00] LABS: MAGNESIUM 2.5 mg/dL (1.8-2.4); PHOSPHORUS 7.5 mg/dL (2.5-4.9)
[2018-04-29] MEDS: amLODIPine 5 MG TAB PO SCH (09:00)
[2018-04-29] MEDS: PANTOPRAZOLE 40 MG TABEC PO SCH (09:00)
[2018-04-29] MEDS: TAMSULOSIN 0.4 MG CAP PO SCH (09:00)
[2018-04-29] MEDS: GABAPENTIN 300 MG CAP PO SCH (09:00)
[2018-04-29] MEDS: LACTULOSE 20 GM/30 ML UDC PO SCH ×2 (09:00→20:13)
[2018-04-29] MEDS: RIFAXIMIN 550 MG TAB PO SCH ×2 (09:00→20:14)
[2018-04-29 09:03] LABS: CARBON DIOXIDE 16.5 mmol/L (21-32); POTASSIUM 4.5 mmol/L (3.5-5.1)
[2018-04-29 09:12] LABS: HEPATITIS A ANTIBODY IGM Negative (Negative); HEPATITIS B CORE AB TOTAL Negative (Negative); HEPATITIS B SURFACE ANTIBODY Reactive (.); HEPATITIS B SURFACE ANTIGEN Negative (Negative)
[2018-04-29 09:28] LABS: CREATININE 10.3 mg/dL (0.7-1.3)
--- NOTE | 2018-04-29 09:45 | NUR ---
PATIENT AT OR GETTING HEMODIALYSIS CATHETER ACCESS PLACED IN. MORNING MEDICATIONS NOT GIVEN DUE TO PATIENT OFF UNIT. WILL CONTINUE TO MONITOR WHEN PATIENT RETURNS ON UNIT.
[2018-04-29] MEDS ORDERED: fentaNYL 0.05 MG/ML VIAL ONE (10:25)
[2018-04-29] MEDS ORDERED: MIDAZOLAM 2 MG/2 ML VIAL ONE (10:25)
[2018-04-29] MEDS ORDERED: PROPOFOL 200 MG/20 ML VIAL IV ONE (10:31)
--- NOTE | 2018-04-29 10:58 | NUR ---
FAXED CONCURRENT REVIEW TO [facility] [phone] PHONE ZOLTAN [phone] FAXED CONCURRENT REVIEW TO [facility] [phone] PHONE ISIAH [phone]
[2018-04-29] MEDS ORDERED: ONDANSETRON 4 MG/2 ML VIAL IV PRN (11:55)
[2018-04-29] MEDS ORDERED: HYDROcodone/APAP 5/325 MG 1 TAB TAB PO PRN (11:55)
[2018-04-29] MEDS ORDERED: HYDROmorphone 1 MG/ML AMP IVP PRN (11:55)
[2018-04-29] MEDS ORDERED: MORPHINE SULFATE 2 MG/ML SYR IVP PRN (11:55)
[2018-04-29] MEDS ORDERED: MORPHINE SULFATE 4 MG/ML SYR IV PRN (11:55)
[2018-04-29 12:25] VITALS: BP 126/49
--- NOTE | 2018-04-29 12:25 | NUR ---
PATIENT BACK TO MST UNIT FROM OR. NO DISTRESS NOTED. RESPIRATIONS EVEN, UNLABORED, ON O2 2L/MIN VIA NC. V/S ARE STABLE. IVF FLUIDS STARTED PER ORDERS. SAFETY MEASURES IN PLACE, CALL LIGHT WITHIN REACH. WILL CONTINUE TO MONITOR.
[2018-04-29] MEDS ORDERED: ALBUTEROL SULFATE/IPRATROPIU 3 ML SOL IH PRN (12:40)
[2018-04-29] MEDS: ALBUTEROL SULFATE/IPRATROPIU 3 ML SOL IH SCH ×2 (13:21→18:37)
--- NOTE | 2018-04-29 13:21 | NUR ---
PATIENT SITTING IN BED AWAKE. ABLE TO SWALLOW ICE CHIPS AND THIN LIQUIDS WITH NO PROBLEMS. MEDICATIONS DUE GIVEN. SAFETY MEASURES IN PLACE, CALL LIGHT WITHIN REACH. WILL CONTINUE TO MONITOR.
[2018-04-29] MEDS ORDERED: SODIUM BICARBONATE 8.4% 50 MEQ in NACL 0.9% 1,000 ML IV SCH (14:00)
--- NOTE | 2018-04-29 14:35 | NUR ---
HEMODIALYSIS NURSE AT BEDSIDE STARTED HD AT THIS TIME. WILL CONTINUE TO MONITOR.
--- NOTE | 2018-04-29 15:31 | NUR ---
RECEIVED ORDER FOR SET UP PATIENT FOR OUT PATIENT HD. DR. BARRAGAN CALLED ME AND SAID TO FAX INFORMATION TO [facility] ON [address]. PHONE [phone]. I CALLED [facility] [address] AND SPOKE WITH ASHLIE. I FAXED HER THE H&P, FACE SHEET DR. BARRAGAN CONSULT, HEP PANEL, OPERATIVE REPORT AND CHEST XRAY TO HER AT [phone].
[2018-04-29 16:00] VITALS: BP 159/56
--- NOTE | 2018-04-29 17:30 | NUR ---
PT HAVING DIALYSIS IS LEFT AT BEDSIDE
--- NOTE | 2018-04-29 17:45 | NUR ---
HEMODIALYSIS COMPLETE, 3L REMOVED. PATIENT IN STABLE CONDITION. WILL CONTINUE TO MONITOR.
[2018-04-29] MEDS: SODIUM FERRIC GLUCONATE 125 MG in NACL 0.9% 100 ML IV SCH (18:11)
--- NOTE | 2018-04-29 18:29 | NUR ---
PATIENT SITTING IN BED WITH DINNER TRAY IN FRONT. FERROUS SULFATE VIA IV STARTED LATE DUE TO HEMODIALYSIS. SAFETY MEASURES IN PLACE, CALL LIGHT WITHIN REACH. WILL CONTINUE TO MONITOR.
--- NOTE | 2018-04-29 19:23 | NUR ---
GAVE REPORT TO TECHNICIAN SEMICONDUCTOR DEVELOPMENT NURSE FOR CONTINUITY OF CARE. PATIENT IN STABLE CONDITION.
--- NOTE | 2018-04-29 19:24 | NUR ---
RECEIVED PT IN STABLE CONDITION FROM AM NURSE. PT IS AWAKE ,ALERT AND ORIENTED X3-4. WITH NO ACUTE DISTRESS NOTED. ON TELE MONITOR . FEW MINUTES AGO HR ON EXTREME BRADYCARDIA 30-32 /MIN. MD CERON. WILL DO EKG. WITH IVF INFUSING WELL ON LT HAND 322. PT HAS GENERALIZED EDEMA. SACRAL AND SCROTUM EXCORIATED DUE TO FREQUENT DIARRHEA, INCONTINENT DERMATITIS. BED ON LOW POSITION. FREQUENT ROUNDS NEEDED. CALL LIGHT PLACED WITHIN EASY REACH. WILL CONTINUE TO MONITOR.
[2018-04-29 19:45] VITALS: BP 132/55
--- NOTE | 2018-04-29 19:55 | NUR ---
RT CAME AND DID THE EKG. PT IS DOING OK, NSR ON THE READING. PT RESTING IN BED. NO DISTRESS NOTED.
[2018-04-29] MEDS: SIMVASTATIN 10 MG TAB PO SCH (20:14)
--- NOTE | 2018-04-29 20:30 | NUR ---
PT HAD A LARGE LOOSE BM .CLEANED AND KEPT DRY. Z GUARD APPLIED TO SACRAL AND SCROTAL AREA.
--- NOTE | 2018-04-29 22:00 | NUR ---
MADE ROUNDS. PT ASLEEP. NO S/S OF ANY RESPIRATORY DISTRESS NOTED. WILL CONTINUE TO MONITOR.
[2018-04-29 23:33] VITALS: BP 124/50
--- NOTE | 2018-04-29 23:33 | NUR ---
PT ASLEEP. VITAL SIGNS TAKEN O2 SAT 99% 9N ROOM AIR. AFEBRILE. WILL CONTINUE TO MONITOR.
--- NOTE | 2018-04-30 01:41 | NUR ---
PT SACRUM AND SCROTUM VERY EXCORIATED . DR. NEWMAN,RESIDENT MD MADE AWARE. WILL ORDER WOUND CARE EVALUATION.
--- NOTE | 2018-04-30 03:30 | NUR ---
MADE ROUNDS. PT ASLEEP. NO S/S OF ANY DISTRESS NOR PAIN NOTED. WILL CONTINUE TO MONITOR.
[2018-04-30 03:45] VITALS: BP 130/48
--- NOTE | 2018-04-30 04:35 | NUR ---
IV ACCESS ON THE LT HAND INFILTRATED.DISCONTINUED. STARTED A NEW IV ACCESS ON THE RT HAND #22. CLEAR AND PATENT.
[2018-04-30] MEDS: PIPER/TAZO 2.25GM/D5W PREMIX 50 ML IV SCH ×3 (05:24→18:44)
--- NOTE | 2018-04-30 06:00 | NUR ---
MADE ROUNDS. PT ASLEEP. HAS BEEN REPOSITIONED FOR COMFORT. NO S/S OF ANY DISTRESS NOTED.
[2018-04-30] MEDS: ALBUTEROL SULFATE/IPRATROPIU 3 ML SOL IH SCH ×3 (06:03→19:42)
[2018-04-30 06:46] LABS: BASOPHILS % (AUTO) 0.1 % (0.0-2.0); EOSINOPHILS # (AUTO) 0.1 K/uL (0-0.4); EOSINOPHILS % (AUTO) 2.8 % (0.0-4.0); HEMATOCRIT 22.4 % (36-52); HEMOGLOBIN 7.1 g/dL (12.0-18.0); LYMPHOCYTES # (AUTO) 0.8 K/uL (2.0-11.5); LYMPHOCYTES % (AUTO) 20.4 % (20.5-51.1); MEAN CORPUSCULAR HEMOGLOBIN 25 pg (27-31); MEAN CORPUSCULAR HGB CONC 32 g/dL (33-37); MEAN CORPUSCULAR VOLUME 79.8 fL (80-94); MONOCYTES # (AUTO) 0.5 K/uL (0.8-1.0); NEUTROPHILS # (AUTO) 2.4 K/uL (1.8-7.7); NEUTROPHILS % (AUTO) 62.7 % (42.2-75.2); RED BLOOD CELL COUNT(AUTO) 2.81 MIL/uL (4.20-6.10); RED CELL DISTRIBUTION WIDTH 20.9 % (11.6-13.7); WHITE BLOOD COUNT (AUTO) 3.8 K/uL (4.8-10.8)
--- NOTE | 2018-04-30 07:19 | NUR ---
ENDORSED PT IN STABLE CONDITION TO AM NURSE FOR CONTINUITY OF CARE.
--- NOTE | 2018-04-30 07:19 | NUR ---
RECEIVED REPORT FROM NIGHTSHIFT NURSE AT BEDSIDE. PATIENT IS AWAKE AT THIS TIME. PATIENT IS ALERT AND ORIENTED X3. NO DISTRESS NOTED. NO PAIN NOTED. PATIENT ON 2L O2 VIA NC. PATIENT HAS A HD CATHETER NOTED ON HIS RIGHT UPPER CHEST DRY AND INTACT. IV NOTED ON RIGHT HAND 22G. PATIENT HAS A LIFE VEST ON WITH BATTERY FULLY CHARGED. PATIENT ON TELE MONITORING. PATIENT PRESENTS WITH SWOLLEN EXTREMITIES AND PITTING EDEMA OF FEET +2. CALL LIGHT WITHIN REACH OF PATIENT. LOWERED BED OF PATIENT AND UPDATED BOARD. INSTRUCTED PATIENT TO CALL IF HE NEEDS ANYTHING. PATIENT VERBALIZED UNDERSTANDING. WILL CONTINUE TO MONITOR PATIENT.
[2018-04-30 07:28] LABS: ANION GAP 14.1 (8-16); CARBON DIOXIDE 23.5 mmol/L (21-32); POTASSIUM 3.6 mmol/L (3.5-5.1)
[2018-04-30 07:48] LABS: PHOSPHORUS 5.9 mg/dL (2.5-4.9)
[2018-04-30 07:54] LABS: CREATININE 5.7 mg/dL (0.7-1.3)
[2018-04-30 07:57] LABS: PLATELET COUNT (AUTO) 66 K/uL (140-450)
[2018-04-30 08:00] VITALS: BP 121/58
[2018-04-30] MEDS: TAMSULOSIN 0.4 MG CAP PO SCH (08:59)
[2018-04-30] MEDS: PANTOPRAZOLE 40 MG TABEC PO SCH (08:59)
[2018-04-30] MEDS: CALCIUM ACETATE 667 MG TAB PO SCH ×3 (08:59→17:43)
[2018-04-30] MEDS: GABAPENTIN 300 MG CAP PO SCH (08:59)
[2018-04-30] MEDS: RIFAXIMIN 550 MG TAB PO SCH ×2 (09:00→21:24)
[2018-04-30] MEDS ORDERED: EPOETIN ALFA 10,000 UNITS/ML VIAL SUBQ SCH (09:00)
[2018-04-30] MEDS: amLODIPine 5 MG TAB PO SCH (09:00)
--- NOTE | 2018-04-30 09:00 | NUR ---
PATIENT TOOK AM MEDICATIONS. PATIENT TOLERATED WELL. HELD NORVASC DUE TO DECREASED PULSE. PATIENT'S BLOOD PRESSURE WITHIN NORMAL LIMITS.
[2018-04-30] MEDS: LACTULOSE 20 GM/30 ML UDC PO SCH ×3 (09:01→17:43)
--- NOTE | 2018-04-30 09:02 | NUR ---
CM NOTE FAXED DIALYSIS FLOW SHEET TO [facility] ON [address] [phone] AND SPOKE WITH ASHLIE PH# [phone] WHO STATED THAT THEY ARE STILL WORKING ON THE OUTPATIENT DIALYSIS CHAIR TIME. DR. ENCISO AWARE. PER ISIAH OF [facility] PH# [phone], IF PATIENT WILL BE DISCHARGED TO SNF, THE SNF WILL HAVE TO ARRANGE FOR PATIENT'S TRANSPORTATION GOING TO AND BACK FROM DIALYSIS. AYLA PENA AWARE.
--- NOTE | 2018-04-30 09:16 | NUR ---
PATIENT TOOK AM MEDICATIONS. PATIENT TOLERATED WELL. HELD PATIENT'S NORVASC DUE TO DECREASED PULSE. BLOOD PRESSURE IS 131/60. WILL REASSESS HEART RATE. WILL CONTINUE TO MONITOR PATIENT.
--- NOTE | 2018-04-30 09:45 | NUR ---
CM NOTE SPOKE WITH ISIAH OF [facility]# [phone] WHO SAID THAT THEY DON'T HAVE A CONTRACT WITH [facility] ON [address] AND THAT PATIENT'S OUTPATIENT DIALYSIS HAS TO BE SET UP WITH ONE OF THEIR CONTRACTED FACILITIES AND WITH ONE OF THEIR CONTRACTED NEPHROLOGISTS. PER ISIAH SHE WILL CALL BACK TO LET US KNOW THEIR CONTRACTED FACILITIES FOR OUTPATIENT DIALYSIS.
--- NOTE | 2018-04-30 10:20 | NUR ---
PATIENT RESTING AT THIS TIME. NO DISTRESS NOTED. WILL CONTINUE TO MONITOR PATIENT.
[2018-04-30 12:00] VITALS: BP 128/60
--- NOTE | 2018-04-30 12:32 | NUR ---
PATIENT TOOK MEDICATIONS WHILE EATING LUNCH. PATIENT TOLERATED WELL.
--- NOTE | 2018-04-30 13:12 | NUR ---
PT SLEEPING WITH NO SIGNS OF DISTRESS NOTED AT THIS TIME NO HHN GIVEN
--- NOTE | 2018-04-30 13:35 | NUR ---
PATIENT HAS BOWEL MOVEMENT WITH SEMI-FORMED CONSISTENCY. CLEANSED PATIENT WITH STOCK ASSOCIATE. PATIENT TOLERATED WELL.
--- NOTE | 2018-04-30 14:50 | NUR ---
CM NOTE PER AUGUSTO OF [facility] PH# [phone], PATIENT CAN GO TO [facility] FOR OUTPATIENT DIALYSIS. RECEIVED CALL FROM FAVIAN OF [facility] PH# [phone] WHO SAID THAT [facility] CURRENT[facility] DOESN'T HAVE ANY AVAILABLE CHAIR TIME AND TO CONTACT JUAN OF [facility] PH# [phone]. SPOKE WITH JUAN OF [facility] WHO SAID THAT [facility] CURRENTLY DOESN'T HAVE AVAILABLE CHAIR TIME BUT SHE WILL LOOK FOR OUTPATIENT DIALYSIS CHAIR TIME IN [facility]. SHE REQUESTED CLINICAL PACKET TO BE FAXED TO [facility] FAX# [phone]. FAXED FACESHEET, H&P, NEPHROLOGY CONSULT, OPERATIVE REPORT, CHEST X-RAY, HEPATITIS PANEL, LAB RESULTS, MEDICATION LIST, DIALYSIS FLOW SHEET TO [facility] FAX# [phone]. I GAVE JUAN [facility] THE NUMBER TO THE NURSING STATION WHERE PATIENT IS IN CASE PATIENT GETS ACCEPTED AND CHAIR TIME SCHEDULE BECOMES AVAILABLE AT A LATER TIME. CHARGE NURSE CASSANDRA MORTENSEN. Addendum: 04/30/18 at [address] Lares CM DR. FERNIE MORTENSEN
--- NOTE | 2018-04-30 14:56 | NUR ---
FAXED CONCURRENT REVIEW TO [facility] [phone]
--- NOTE | 2018-04-30 15:20 | NUR ---
PATIENT RESTING AT THIS TIME. NO DISTRESS NOTED. WILL CONTINUE TO MONITOR PATIENT.
--- NOTE | 2018-04-30 15:33 | NUR ---
DR. FERNIE MORTENSEN
[2018-04-30 16:00] VITALS: BP 143/54
--- NOTE | 2018-04-30 16:19 | NUR ---
04/30/18 RD INITIAL ASSESSMENT COMPLETED PLEASE REFER TO NUTRITION ASSESSMENT UNDER CARE ACTIVITY FOR ESTIMATED NUTRITIONAL NEEDS. 1. RECOMMEND DISCONTINUE CARDIAC, CCHO 60GM, RENAL DIET 2. RECOMMEND CCHO 75GM, RENAL DIET TOLERATED 3. PROVIDED DIALYSIS NUTRITION EDUCATION; MAY NEED REINFORCEMENT 3. RD TO FOLLOW-UP 5-7 DAYS, LOW RISK JEREMI MARIE RD
--- NOTE | 2018-04-30 16:29 | NUR ---
SCREEN FOR LOW TONIO SCALE, NO REDNESS, INCONTINENT ASSOCIATE DERMATITIS TO SACRAL COCCYX, R/L BUTTOCKS, DR. ENCISO NOTIFY RECOMMENDATION Z-GUARD TO IAD AREAS BID AND PRN IF SOILING. ALL PRESSURE ULCER PREVENTION INTERVENTION IN PLACE.
--- NOTE | 2018-04-30 17:00 | NUR ---
Car Top Bolter Note: Per Efraín from [facility] , patient is on a 7 day bed hold.
[2018-04-30] MEDS ORDERED: Z-GUARD PASTE TP PRN (17:20)
--- NOTE | 2018-04-30 17:20 | NUR ---
PATIENT RESTING AT THIS TIME. NO DISTRESS NOTED. WILL CONTINUE TO MONITOR
[2018-04-30] MEDS: SODIUM FERRIC GLUCONATE 125 MG in NACL 0.9% 100 ML IV SCH (17:33)
--- NOTE | 2018-04-30 19:25 | NUR ---
GAVE REPORT TO NIGHTSHIFT NURSE AT BEDSIDE. PATIENT IN STABLE CONDITION
--- NOTE | 2018-04-30 19:30 | NUR ---
ASSUMED CARE OF PATIENT, AWAKE, ALERT AND ORIENTED. STABLE CONDITION. NO COMPLAINS. CALL LIGHT WITHIN REACH.
--- NOTE | 2018-04-30 20:00 | NUR ---
VITAL SIGNS STABLE. AFEBRILE. NO COMPLAINS. PATIENT ATE SNACK. CARE BOARD UPDATED. PLAN OF CARE DISCUSSED WITH PATIENT, NEEDS REINFORCEMENT. CALL LIGHT WITHIN REACH.
[2018-04-30 20:05] VITALS: BP 113/39
[2018-04-30] MEDS: SIMVASTATIN 10 MG TAB PO SCH (21:24)
--- NOTE | 2018-04-30 22:00 | NUR ---
DIFFUSER OPERATOR AT BEDSIDE, REPOSITIONED AND PERICARE DONE. CALL LIGHT WITHIN REACH. ATE SNACK PER REQUEST.
[2018-05-01] MEDS: PIPER/TAZO 2.25GM/D5W PREMIX 50 ML IV SCH ×2 (00:11→05:11)
[2018-05-01 00:13] VITALS: BP 138/56
--- NOTE | 2018-05-01 00:17 | NUR ---
REPOSITIONED. VITAL SIGNS STABLE. AFEBRILE. CALL LIGHT WITHIN REACH.
[2018-05-01 04:18] VITALS: BP 140/62
--- NOTE | 2018-05-01 04:19 | NUR ---
REPOSITIONED. NO COMPLAINS. VITAL SIGNS STABLE. AFEBRILE. CALL LIGHT WITHIN REACH.
[2018-05-01 06:45] LABS: BASOPHILS % (AUTO) 0.2 % (0.0-2.0); EOSINOPHILS # (AUTO) 0.1 K/uL (0-0.4); EOSINOPHILS % (AUTO) 2.7 % (0.0-4.0); HEMATOCRIT 22.3 % (36-52); HEMOGLOBIN 7.1 g/dL (12.0-18.0); LYMPHOCYTES # (AUTO) 0.8 K/uL (2.0-11.5); LYMPHOCYTES % (AUTO) 22.7 % (20.5-51.1); MEAN CORPUSCULAR HEMOGLOBIN 26 pg (27-31); MEAN CORPUSCULAR HGB CONC 32 g/dL (33-37); MEAN CORPUSCULAR VOLUME 79.9 fL (80-94); MONOCYTES # (AUTO) 0.5 K/uL (0.8-1.0); NEUTROPHILS # (AUTO) 2.2 K/uL (1.8-7.7); NEUTROPHILS % (AUTO) 60.4 % (42.2-75.2); PLATELET COUNT (AUTO) 52 K/uL (140-450); RED BLOOD CELL COUNT(AUTO) 2.79 MIL/uL (4.20-6.10); WHITE BLOOD COUNT (AUTO) 3.7 K/uL (4.8-10.8)
[2018-05-01 07:15] LABS: ANION GAP 15.3 (8-16); CARBON DIOXIDE 21.3 mmol/L (21-32); POTASSIUM 3.6 mmol/L (3.5-5.1)
[2018-05-01] MEDS: ALBUTEROL SULFATE/IPRATROPIU 3 ML SOL IH SCH ×3 (07:19→19:29)
--- NOTE | 2018-05-01 07:19 | NUR ---
ENDORSED CARE OF PATIENT AT BEDSIDE WITH AYLA RN, PATIENT IN STABLE CONDITION.
--- NOTE | 2018-05-01 07:19 | NUR ---
RECEIVED REPORT AT BEDSIDE FROM NIGHTSHIFT NURSE. PATIENT IS AWAKE AT THIS TIME. PATIENT PRESENTS IN SEMI-FOWLERS POSITION. PATIENT ALERT AND ORIENTED X2-3. PATIENT HAS AN IV ON THE RIGHT HAND 22G SL. NO DISTRESS NOTED FROM PATIENT. NO PAIN NOTED. PATIENT HAS A DIALYSIS CATHETER NOTED ON RIGHT UPPER CHEST. PATIENT APPEARS SWOLLEN ON ALL EXTREMITIES. HEMODIALYSIS DUE TODAY FOR PATIENT. PATIENT UNDERSTANDS PROCEDURE. LOWERED BED TO LOWEST SETTING. CALL LIGHT WITHIN REACH OF PATIENT. UPDATED BOARD IN PATIENT'S ROOM. WILL CONTINUE TO MONITOR PATIENT.
[2018-05-01 07:37] LABS: MAGNESIUM 2.1 mg/dL (1.8-2.4)
[2018-05-01 07:52] VITALS: BP 113/59
[2018-05-01 08:46] LABS: CREATININE 6.5 mg/dL (0.7-1.3)
[2018-05-01] MEDS: amLODIPine 5 MG TAB PO SCH (09:00)
[2018-05-01] MEDS: TAMSULOSIN 0.4 MG CAP PO SCH (09:12)
[2018-05-01] MEDS: CALCIUM ACETATE 667 MG TAB PO SCH ×3 (09:12→18:43)
[2018-05-01] MEDS: GABAPENTIN 300 MG CAP PO SCH (09:12)
[2018-05-01] MEDS: PANTOPRAZOLE 40 MG TABEC PO SCH (09:12)
[2018-05-01] MEDS: LACTULOSE 20 GM/30 ML UDC PO SCH ×3 (09:13→18:44)
[2018-05-01] MEDS: RIFAXIMIN 550 MG TAB PO SCH ×2 (09:13→20:47)
--- NOTE | 2018-05-01 10:05 | NUR ---
NOTIFIED DR. ENCISO OF PATIENT'S DIALYSIS CATHETER ACCESS FILLED WITH BLOOD. AWAITING ORDERS.
--- NOTE | 2018-05-01 11:38 | NUR ---
CM NOTE RECEIVED CALL FROM JUAN OF [facility] PH# [phone] WHO STATED THAT PATIENT'S OUTPATIENT DIALYSIS CHAIR TIME IS MONDAYS/WEDNESDAYS/FRIDAYS 2:15PM AT [facility] ([facility] [address] [place] [address]) [address] LUNA STARTING 05/02/18. DR. FERNIE MORTENSEN. RECEIVED CALL FROM ISIAH [facility] PH# [phone] WHO STATED FOR [facility] AUTH# [id number]. RONNIE OF [facility] MADE AWARE OF PATIENT'S OUTPATIENT DIALYSIS CENTER AND SCHEDULE AND PER RONNIE THEY WILL SET UP PATIENT'S TRANSPORT GOING TO AND FROM DIALYSIS CENTER.
[2018-05-01] MEDS ORDERED: ALBU3SOL83 IH (11:46)
[2018-05-01 12:00] VITALS: BP 139/64
--- NOTE | 2018-05-01 12:44 | NUR ---
PATIENT STARTED ON DIALYSIS. DIALYSIS NURSE SITTING AT BEDSIDE. WILL CONTINUE TO MONITOR PATIENT.
--- NOTE | 2018-05-01 12:48 | NUR ---
Logistics Operations Director Note: Per Efraín from [facility] , patient can go to room 116C anytime today, accepting physician is , showcase maker Chapo talbert.
--- NOTE | 2018-05-01 12:55 | NUR ---
BLOOD TRANSFUSION STARTED. DIALYSIS NURSE MONITORING PATIENT'S VITAL SIGNS AT THIS TIME. WILL CONTINUE TO MONITOR PATIENT.
--- NOTE | 2018-05-01 13:30 | NUR ---
PATIENT REFUSED MEDICATIONS PHOSLO AND CEPHULAC. EXPLAINED BENEFITS OF TAKING MEDICATIONS. PATIENT SAYS, "I FEEL TOO TIRED". WILL CONTINUE TO MONITOR PATIENT.
--- NOTE | 2018-05-01 14:30 | NUR ---
PATIENT ENTERED V-TACH FOR SEVERAL SECONDS. REPORTED TO DR. ENCISO REGARDING FINDINGS.
--- NOTE | 2018-05-01 14:31 | NUR ---
PATIENT RESTING AT IN BED. DIALYSIS NURSE AT BEDSIDE. WILL CONTINUE TO MONITOR PATIENT. Addendum: 05/01/18 at 1506 by Jose Sorensen II, RN PATIENT FINISHED TRANSFUSION OF 2 UNITS OF BLOOD. NO SIGNS OF REACTION AT THIS TIME. PATIENT IS STABLE.
--- NOTE | 2018-05-01 15:15 | NUR ---
PATIENT WILL BE TRANSFER BACK TO [facility], AUTH # [id number]. AND WII BE TRASPORTED WITH AND AUTH NUMBER [id number]. AUTH WERE GIVEN FROM [facility] ON [address] CRIBBER AT 630 BY AT 1830. WILL GO TO ROOM 116-C.
[2018-05-01 16:00] VITALS: BP 135/59
[2018-05-01] MEDS: SODIUM FERRIC GLUCONATE 125 MG in NACL 0.9% 100 ML IV SCH (16:29)
--- NOTE | 2018-05-01 18:00 | NUR ---
CALLED [place] REGARDING PATIENT'S TRANSFER TO [facility].
--- NOTE | 2018-05-01 18:25 | NUR ---
GAVE REPORT TO MILKA THOMAS AT [facility]. GAVE CALL BACK NUMBER FOR ADDITIONAL QUESTIONS.
--- NOTE | 2018-05-01 18:51 | NUR ---
PATIENT SIGNED DISCHARGE INSTRUCTIONS AND IS AWARE OF TRANSFER.
--- NOTE | 2018-05-01 18:53 | NUR ---
INFORMED MILKA THOMAS OF ADMINISTRATION OF PHOSLO AND LACTULOSE MEDICATIONS.
--- NOTE | 2018-05-01 19:22 | NUR ---
GAVE REPORT TO NIGHTSHIFT NURSE AT BEDSIDE. PATIENT IN STABLE CONDITION.
[2018-05-01] MEDS: SIMVASTATIN 10 MG TAB PO SCH (20:47)
--- NOTE | 2018-05-02 08:45 | NUR ---
FAXED DISCHARGE SUMMARY TO [facility] [phone] FAXED DISCHARGE SUMMARY TO [facility] [phone]
== END 2018-05-01 21:35 | DRG 673 ==
LOC: MED 01:45 → MTU 05:17
PROVIDERS: ADMIT Family Medicine; ATTEND Family Medicine
PROC: 02H633Z Insertion of Infusion Device into Right Atrium, Percutaneous Approach (ICD-10-PCS; 2018-04-29)
PROC: B543ZZA Ultrasonography of Right Jugular Veins, Guidance (ICD-10-PCS; 2018-04-29)
PROC: B2141ZZ Fluoroscopy of Right Heart using Low Osmolar Contrast (ICD-10-PCS; 2018-04-29)
PROC: 5A1D70Z Performance of Urinary Filtration, Intermittent, Less than 6 Hours Per Day (ICD-10-PCS; 2018-04-29)
PROC: 0JH63XZ Insertion of Tunneled Vascular Access Device into Chest Subcutaneous Tissue and Fascia, Percutaneous Approach (ICD-10-PCS; principal; 2018-04-29 13:45)
PROC: 5A1D70Z Performance of Urinary Filtration, Intermittent, Less than 6 Hours Per Day (ICD-10-PCS; 2018-05-01)
PROC: 30233N1 Transfusion of Nonautologous Red Blood Cells into Peripheral Vein, Percutaneous Approach (ICD-10-PCS; 2018-05-01)
DX: N17.0 Acute kidney failure with tubular necrosis (principal); I50.43 Acute on chronic combined systolic (congestive) and diastolic (congestive) heart failure; E43 Unspecified severe protein-calorie malnutrition; J96.90 Respiratory failure, unspecified, unspecified whether with hypoxia or hypercapnia; G93.41 Metabolic encephalopathy; E72.20 Disorder of urea cycle metabolism, unspecified; E87.1 Hypo-osmolality and hyponatremia; I13.2 Hypertensive heart and chronic kidney disease with heart failure and with stage 5 chronic kidney disease, or end stage renal disease; I42.9 Cardiomyopathy, unspecified; K72.90 Hepatic failure, unspecified without coma; N18.6 End stage renal disease; K74.60 Unspecified cirrhosis of liver; E02 Subclinical iodine-deficiency hypothyroidism; E66.9 Obesity, unspecified; E87.5 Hyperkalemia; E83.51 Hypocalcemia; D69.6 Thrombocytopenia, unspecified; E11.22 Type 2 diabetes mellitus with diabetic chronic kidney disease; E86.1 Hypovolemia; E88.09 Other disorders of plasma-protein metabolism, not elsewhere classified; I25.10 Atherosclerotic heart disease of native coronary artery without angina pectoris; R00.1 Bradycardia, unspecified; E11.51 Type 2 diabetes mellitus with diabetic peripheral angiopathy without gangrene; D63.1 Anemia in chronic kidney disease; E83.39 Other disorders of phosphorus metabolism; E11.21 Type 2 diabetes mellitus with diabetic nephropathy; N40.0 Benign prostatic hyperplasia without lower urinary tract symptoms; J44.9 Chronic obstructive pulmonary disease, unspecified; K21.9 Gastro-esophageal reflux disease without esophagitis; Z68.31 Body mass index [BMI] 31.0-31.9, adult; I25.2 Old myocardial infarction; Z95.5 Presence of coronary angioplasty implant and graft; Z95.1 Presence of aortocoronary bypass graft; Z68.36 Body mass index [BMI] 36.0-36.9, adult; Z79.899 Other long term (current) drug therapy; Z88.5 Allergy status to narcotic agent; Z88.8 Allergy status to other drugs, medicaments and biological substances; Z87.891 Personal history of nicotine dependence
CPT/HCPCS: 36415; 70450; 71045; 76604; 76705; 80048; 80053; 82140; 82150; 82728; 82948; 83036; 83540; 83690; 83735; 83880; 84100; 84436; 84439; 84443; 84479; 84484; 85025; 85610; 85730; 86704; 86706; 86708; 86709; 86803; 86886; 86900; 86901; 86920; 87081; 87340; 93005; 94640; 97110; 97140; 97530; 99285; C1751; J0690; J0885; J1644; J2001; J2250; J2543; J2704; J2916; J3010; J3490; J7030; J7120; J7620; P9016; Q0092